=== PATIENT | male | born 1950 | race Caucasian/White ===

== ENCOUNTER 2016-11-16 09:28 | Inpatient (IN) | payer BC ==
[2016-11-16] VITALS (11 sets, daily range): BP systolic 123–155; BP diastolic 75–93; PULSE 71–88; RESP 16–20; TEMP 97.7–97.9; O2SAT 95–98
[~2016-11-16] VITALS: Ht 167.6 cm; Wt 85.0 kg
[~2016-11-16 09:28] MED LIST: BUPR100CR PO; LORA1TAB12 PO; TRAM50TA PO
[2016-11-16 09:58] LABS: AUTOMATED NEUTROPHIL # 5.2 TH/MM3 (1.8-7.7); BASOPHIL # 0.2 TH/MM3 (0-0.2); BASOPHIL % 2.1 % (0.0-2.0); EOSINOPHIL # 0.2 TH/MM3 (0-0.4); EOSINOPHIL % 2.5 % (0.0-4.0); HEMATOCRIT 47.4 % (39.0-51.0); HEMO FLAGS DIFF FINAL; LYMPH % 17.3 % (9.0-44.0); LYMPHOCYTE # 1.3 TH/MM3 (1.0-4.8); MEAN CELL VOLUME 94.2 FL (80.0-100.0); MEAN CORPUSCULAR HEMOGLOBIN 31.6 PG (27.0-34.0); MEAN CORPUSCULAR HGB CONC 33.5 % (32.0-36.0); MONO % 6.5 % (0.0-8.0); NEUT % 71.6 % (16.0-70.0); PLATELET COUNT 215 TH/MM3 (150-450); RED BLOOD COUNT 5.03 MIL/MM3 (4.50-5.90); RED CELL DISTRIBUTION WIDTH 12.5 % (11.6-17.2); WHITE BLOOD COUNT 7.4 TH/MM3 (4.0-11.0)
[2016-11-16] MEDS ORDERED: ONDANSETRON HCL 4 MG/2 ML VIAL IV PUSH ONE (10:00)
[2016-11-16] MEDS ORDERED: ASPIRIN 81 MG CHEW TAB PO ONE (10:00)
[2016-11-16] MEDS ORDERED: SODIUM CHLOR 0.9% 1000 ML INJ 1,000 ML IV ONE (10:00)
[2016-11-16] MEDS ORDERED: VANCOMYCIN INJ 1,250 MG in SODIUM CHLOR 0.9% 250 ML INJ 250 ML IV ONE (10:00)
[2016-11-16] MEDS: NITROGLYCERIN 0.4 MG SL 25 TABS/BTL SL SCH ×3 (10:03→10:18)
--- NOTE | 2016-11-16 10:03 | PD ---
HPI Chief Complaint: Chest Pain Time Seen by Provider: 09:48 Travel History International Travel<30 days: No Contact w/Intl Traveler<30days: No Traveled to known affect area: No History of Present Illness HPI Patient is a 66-year-old male who presents to emergency room with multiple complaints. 1) patient reports that he woke up at 6 AM this morning with complaints of chest pain. Patient reports that chest pain is substernal and felt a pressure to his chest. Patient reports that he feels short of breath, diaphoretic and anxious with this chest pain. Patient reports that his chest pain is nonradiating in nature. Reports that he has similar chest pain in the past and had a cardiac workup 2 months ago at an outside hospital, reports that they performed a stress test was negative, reports that they recommended possible cardiac catheter but wanted to see if medication help the symptoms prior to performing cardiac cath. Reports that chest pain feels similar to his previous symptoms. 2) patient reports that on Thursday (6 days ago), he was fixing his deck and reports that his right leg fell through an open part of the deck. Reports that it looked like a skin abrasion/avulsion initially, reports that today he has increased swelling and pain to his right lower extremity with increased redness surrounding the area of abrasion. Patient denies fevers or chills. Patient reports a tetanus is up-to-date. 3) patient reports that he is very anxious, reports history of anxiety as well. PFSH Past Medical History Anxiety: Yes Depression: Yes Diminished Hearing: No Immunizations Current: Yes Influenza Vaccination: Yes ?: Not Past Surgical History Surgical History: No Previous Surgery Family History Family History: Negative Social History Alcohol Use: No Tobacco Use: No Substance Use: No Allergies-Medications (Allergen,Severity, Reaction): Coded Allergies: No Known Allergies (Unverified , 11/16/16) Reported Meds & Prescriptions Reported Meds & Active Scripts Active Reported Lorazepam 1 Mg Tab 1 Mg PO DIRECTED PRN Wellbutrin SR 12 HR (Bupropion HCl) 100 Mg Tab 100 Mg PO Q12HR Review of Systems General / Constitutional: No: Fever Eyes: No: Visual changes HENT: No: Headaches Cardiovascular: Positive: Chest Pain or Discomfort, Diaphoresis Respiratory: Positive: Shortness of Breath Gastrointestinal: Positive: Nausea, No: Vomiting, Diarrhea, Abdominal Pain Genitourinary: No: Urgency, Frequency, Dysuria Musculoskeletal: No: Pain Skin: Positive Other (cellulitis/abscess infection to right lower leg), No Rash Neurologic: No: Weakness Psychiatric: No: Depression Endocrine: No: Polydipsia Hematologic/Lymphatic: No: Easy Bruising Physical Exam Narrative GENERAL: Patient moderate distress SKIN: Warm and dry. HEAD: Atraumatic. Normocephalic. EYES: Pupils equal and round. No scleral icterus. No injection or drainage. ENT: No nasal bleeding or discharge. Mucous membranes pink and moist. NECK: Trachea midline. No JVD. CARDIOVASCULAR: Patient tachycardic. No murmur appreciated. RESPIRATORY: No accessory muscle use. Clear to auscultation. Breath sounds equal bilaterally. GASTROINTESTINAL: Abdomen soft, non-tender, nondistended. Hepatic and splenic margins not palpable. MUSCULOSKELETAL: No obvious deformities. Right lower extremity: Patient with bruise with appearance of abscess with surrounding cellulitis to the right anterior herndon, there is no drainage to area , no signs of open fracture. Patient with positive Homans sign, pulses intact, neurovascularly intact Left lower extremity: Normal evaluation NEUROLOGICAL: Awake and alert. No obvious cranial nerve deficits. Motor grossly within normal limits. Normal speech. PSYCHIATRIC: Appropriate mood and affect; insight and judgment normal. Data Data Last Documented VS Vital Signs Date Time Temp Pulse Resp B/P Pulse Ox O2 Delivery O2 Flow Rate FiO2 11/16/16 12:21 70 18 11/16/16 12:21 132/87 98 Room Air 11/16/16 11:02 2 11/16/16 09:35 97.7 Orders Ckmb (Isoenzyme) Profile (11/16/16 09:48) Complete Blood Count With Diff (11/16/16 09:48) Comprehensive Metabolic Panel (11/16/16 09:48) Prothrombin Time / Inr (Pt) (11/16/16 09:48) Act Partial Throm Time (Ptt) (11/16/16 09:48) Troponin I (11/16/16 09:48) Chest, Single Ap (11/16/16 09:48) Ecg Monitoring (11/16/16 09:48) Iv Access Insert/Monitor (11/16/16 09:48) Oximetry (11/16/16 09:48) Aspirin Chew (Aspirin Chew) (11/16/16 10:00) Sodium Chloride 0.9% Flush (Ns Flush) (11/16/16 10:00) Nitroglycerin Sl (Nitrostat Sl) (11/16/16 10:00) Tibia/Fibula (Ap/Lat) (11/16/16 ) Vancomycin Inj (Vancomycin Inj) (11/16/16 10:00) Us Leg Venous Doppler (11/16/16 ) Ondansetron Inj (Zofran Inj) (11/16/16 10:00) Sodium Chlor 0.9% 1000 Ml Inj (Ns 1000 M (11/16/16 10:00) CKMB (11/16/16 09:30) CKMB% (11/16/16 09:30) Morphine Inj (Morphine Inj) (11/16/16 10:45) Lidocaine 1% Inj (Xylocaine 1% Inj) (11/16/16 13:15) Lidocaine 1% Inj (Xylocaine 1% Inj) (11/16/16 13:15) Wound Culture And Gram Stain (11/16/16 13:11) Admit Order (Ed Use Only) (11/16/16 13:12) Lidocaine 1% Inj (50 Ml) (Xylocaine 1% I (11/16/16 13:15) Labs Laboratory Tests Test 11/16/16 09:30 White Blood Count 7.4 TH/MM3 Red Blood Count 5.03 MIL/MM3 Hemoglobin 15.9 GM/DL Hematocrit 47.4 % Mean Corpuscular Volume 94.2 FL Mean Corpuscular Hemoglobin 31.6 PG Mean Corpuscular Hemoglobin 33.5 % Concent Red Cell Distribution Width 12.5 % Platelet Count 215 TH/MM3 Mean Platelet Volume 8.5 FL Neutrophils (%) (Auto) 71.6 % Lymphocytes (%) (Auto) 17.3 % Monocytes (%) (Auto) 6.5 % Eosinophils (%) (Auto) 2.5 % Basophils (%) (Auto) 2.1 % Neutrophils # (Auto) 5.2 TH/MM3 Lymphocytes # (Auto) 1.3 TH/MM3 Monocytes # (Auto) 0.5 TH/MM3 Eosinophils # (Auto) 0.2 TH/MM3 Basophils # (Auto) 0.2 TH/MM3 CBC Comment DIFF FINAL Differential Comment Prothrombin Time 10.8 SEC Prothromb Time International 1.0 RATIO Ratio Activated Partial 24.3 SEC Thromboplast Time Sodium Level 142 MEQ/L Potassium Level 3.9 MEQ/L Chloride Level 108 MEQ/L Carbon Dioxide Level 24.1 MEQ/L Anion Gap 10 MEQ/L Blood Urea Nitrogen 13 MG/DL Creatinine 1.20 MG/DL Estimat Glomerular Filtration 61 ML/MIN Rate Random Glucose 103 MG/DL Calcium Level 8.5 MG/DL Total Bilirubin 0.6 MG/DL Aspartate Amino Transf 14 U/L (AST/SGOT) Alanine Aminotransferase 26 U/L (ALT/SGPT) Alkaline Phosphatase 78 U/L Total Creatine Kinase 105 U/L Creatine Kinase MB 1.0 NG/ML Troponin I LESS THAN 0.02 NG/ML Total Protein 7.2 GM/DL Albumin 3.4 GM/DL MDM Medical Decision Making Medical Screen Exam Complete: Yes Emergency Medical Condition: Yes Interpretation(s) Vital Signs Date Time Temp Pulse Resp B/P Pulse Ox O2 Delivery O2 Flow Rate FiO2 11/16/16 09:37 88 97 Room Air 11/16/16 09:35 97.7 88 18 146/90 98 EKG at 0929: Normal sinus rhythm at 85 beats a minute, QT/QTc 332/375, nonspecific t wave changes, no acute changes Differential Diagnosis ACS, unstable angina, arrhythmia, electrolyte abnormality, pneumothorax, anxiety reaction, right lower extremity cellulitis with abscess, DVT Narrative Course Patient is a 66-year-old male with multiple complaints 1: Chest pain: Patient currently chest pain, chest pain is substernal and nonradiating, reports that pt feels like a "pressure to my chest." Patient was placed on a pelletizer tender. EKG obtained which showed no acute ST-T wave changes, patient with nonspecific T-wave changes on EKG. Discussed with patient need for x-ray chest, CBC, BMP, cardiac enzymes for further evaluation of symptoms. Patient did have a cardiac workup 2 months ago which patient reports "they did not find anything on with me." Reports that they considered cardiac cath but wanted to wait to see if his medications helped with his symptoms as he has hx of anxiety 2: Right extremity pain: Patient injured his right anterior herndon 6 days ago and reports that initially had a contusion of his right tibia, reports increased swelling and redness and pain to his calf over the past few days. Patient with abscess with cellulitis to his right anterior herndon, will x-ray right tib-fib to look for osteomyelitis. Will start patient on antibiotics. US ordered to evaluate for DVT. Patient's tetanus is up-to-date Patient relief of chest pain with 2SL nitroglycerin, patient with pain to right lower extremity, will provide pain medication for leg pain All labs and all studies reviewed patient in detail. Ultrasound with abscess to right lower extremity. Plan to I&D this abscess, patient does have surrounding cellulitis, patient given dose of IV vancomycin. Patient currently chest pain-free, well obs for chest pain as well as cellulitis of left lower extremity Procedures Procedure Narrative INCISION AND DRAINAGE OF ABSCESS: The area was prepped and was sterilely draped. A subcutaneous wheal of 1% lidocaine with a total number 2 mL was used to anesthetize the area properly. A number 11 scalpel was used to make a 1 -cm incision across the area of the abscess. The abscess was drained, complex loculations were broken down, and irrigated with normal saline. There was no area of pus drainage, pt with hematoma to area of abscess Cultures were obtained. Sterile dressing applied. Physician Communication Physician Communication case reviewed with Dr Be who accepts pt to service Diagnosis Primary Impression: Abscess or cellulitis of leg Additional Impression: Chest pain Qualified Code: R07.9 - Chest pain, unspecified type Admitting Information Admitting Physician Requests: Rosie Ortiz DO Nov 16, 2016 10:03
[2016-11-16] MEDS: SODIUM CHLORIDE 0.9% FLUSH 5 ML FLUSH IVF PRN (10:04)
[2016-11-16 10:07] LABS: CHLORIDE 108 MEQ/L (98-107); POTASSIUM 3.9 MEQ/L (3.5-5.1); SODIUM (NA) 142 MEQ/L (136-145)
[2016-11-16 10:10] LABS: ANION GAP 10 MEQ/L (5-15); BICARBONATE 24.1 MEQ/L (21.0-32.0); BLOOD UREA NITROGEN 13 MG/DL (7-18)
--- NOTE | 2016-11-16 10:10 | RADHPO ---
EXAM DATE/TIME: 11/16/2016 10:01 [facility] COMPARISON: TIBIA/FIBULA RIGHT (AP/LAT), November 11, 2016, 15:56. INDICATIONS : Previous fall/step through wooden deck. Wound to right anterior distal tib/fib. MEDICAL HISTORY : None. SURGICAL HISTORY : None. ENCOUNTER: Subsequent ACUITY: 4 - 6 days PAIN SCORE: 7/10 LOCATION: Right distal tib/fib FINDINGS: Two view examination of the right tibia demonstrates no evidence of fracture or dislocation. Bony mi neralization is normal. The soft tissue structures are intact. CONCLUSION: No acute disease. Stanislaw Rodriges MD on November 16, 2016 at 10:08 Board Certified Radiologist. This report was verified electronically.
[2016-11-16 10:11] LABS: APTT (PATIENT) 24.3 SEC (24.3-30.1); PROTHROMBIN TIME - PATIENT 10.8 SEC (9.8-11.6)
[2016-11-16 10:13] LABS: ALT (GPT) 26 U/L (12-78)
[2016-11-16 10:14] LABS: AST (GOT) 14 U/L (15-37); GLOMERULAR FILTRATION RATE 61 ML/MIN (>89)
[2016-11-16 10:15] LABS: TOTAL BILIRUBIN ADULT 0.6 MG/DL (0.2-1.0)
[2016-11-16 10:16] LABS: ALKALINE PHOSPHATASE 78 U/L (45-117); CREATINE KINASE 105 U/L (39-308)
--- NOTE | 2016-11-16 10:30 | RADHPO ---
EXAM DATE/TIME: 11/16/2016 10:00 [facility] COMPARISON: No previous studies available for comparison. INDICATIONS : Chest pain and tightness. MEDICAL HISTORY : None. SURGICAL HISTORY : None. ENCOUNTER: Initial ACUITY: 2 days PAIN SCORE: 4/10 LOCATION: Bilateral chest FINDINGS: A single view of the chest demonstrates the lungs to be symmetrically aerated without evidence of mas s, infiltrate or effusion. The cardiomediastinal contours are unremarkable. Osseous structures are intact. CONCLUSION: Normal examination. Stanislaw Rodriges MD on November 16, 2016 at 10:29 Board Certified Radiologist. This report was verified electronically.
[2016-11-16] MEDS ORDERED: MORPHINE SULFATE 4 MG/ML INJ IV PUSH ONE (10:45)
--- NOTE | 2016-11-16 12:29 | RADHPO ---
EXAM DATE/TIME: 11/16/2016 11:53 [facility] COMPARISON: No previous studies available for comparison. INDICATIONS : Right leg pain, swelling, and open wound lateral lower leg after falling through decking. MEDICAL HISTORY : Right leg pain and swelling. SURGICAL HISTORY : None. ENCOUNTER: Initial ACUITY: 4 - 6 days PAIN SCORE: 10/10 LOCATION: Right leg. TECHNIQUE: Venous ultrasound of the leg was performed from the inguinal ligament to the proximal calf. Real-nannette e, color Doppler and spectral tracing, compression and augmentation techniques were used. FINDINGS: There is normal compressibility of the deep venous system from the inguinal region to the proximal ca lf. No echogenic clot is seen in the lumen of the common femoral, femoral, popliteal, and posterior tibial veins. There is a normal response of the venous system to proximal and distal augmentation an d respiration. CONCLUSION: No evidence for DVT. At the level of the patient's wound a 5 x 5.7 x 0.9 cm subcutaneous fluid collec tion is noted. Stanislaw Rodriges MD on November 16, 2016 at 12:27 Board Certified Radiologist. This report was verified electronically.
[2016-11-16] MEDS ORDERED: LIDOCAINE HCL 1% 20 ML VIAL INFIL ONE (13:15)
[2016-11-16] MEDS ORDERED: LIDOCAINE HCL 1% 30 ML VIAL INFIL ONE (13:15)
[2016-11-16] MEDS ORDERED: LIDOCAINE HCL 1% 50 ML VIAL INFIL ONE (13:15)
[2016-11-16] MEDS: MUPIROCIN 2% CREAM 15 GM TOPICAL SCH ×2 (15:30→21:41)
[2016-11-16] MEDS: LORazepam 1 MG TAB PO PRN (15:57)
[2016-11-16] MEDS: ENOXAPARIN SODIUM 40 MG/0.4 ML SYRINGE SQ SCH (15:57)
[2016-11-16] MEDS: PANTOPRAZOLE SOD 40 MG DELAYED RELEASE TAB PO SCH (15:59)
--- NOTE | 2016-11-16 16:00 | MH ---
cc: CAMDEN VARGAS MD DATE OF ADMISSION: 11/16/2016 CHIEF COMPLAINT: Chest pain. HISTORY OF PRESENT ILLNESS: This is a 66-year-old male with past medical-surgical history significant for anxiety and depression who came to the emergency room at [facility] complaining of chest pain. He woke up this morning complaining of chest pain. The patient reported the chest pain was substernal and felt like a tightness in the chest and now he feels some shortness of breath and diaphoretic and anxious with this chest pain. The pain is non-radiating. No aggravating or relieving factors. He had a stress test done six months ago with Dr. Green and he said that the stress test was negative. They recommended a cardiac catheterization but he wanted to see if medication helped those symptoms prior to performing cardiac catheterization. He said that he felt last Thursday, six days ago, and reported right leg abrasion on the herndon area. He came to the emergency room and his redness got worsened and he got a tetanus shot. He had some calf pain and a venous Doppler was done, which shows negative for DVT. He was started on empiric antibiotics. Other than that, nothing significant. His chest pain totally resolved at the time of examination. PAST MEDICAL AND SURGICAL HISTORY: As dictated above. SOCIAL HISTORY: Denies smoking, drinking or taking any drugs. Lives at home. He is and is self-employed. ALLERGIES: NO KNOWN DRUG ALLERGIES. MEDICATIONS 1. Lorazepam 1 milligram p.o. p.r.n. as directed for anxiety. 2. Wellbutrin SR 100 milligrams p.o. q.12 h. REVIEW OF SYSTEMS: Positive for right leg wound and pain in the right leg. All other review of systems are negative. PHYSICAL EXAMINATION: GENERAL: On physical exam, this is a 66-year-old male lying on the bed not in acute distress. VITAL SIGNS: Temperature is 97.7, heart rate 76, respirations 18, blood pressure 155/92, 02 saturation 97% on oxygen nasal cannula. HEAD, EYES, EARS, NOSE, THROAT: Normocephalic and atraumatic. Extraocular muscles intact. Pupils equal, round and reactive to light and accommodation. Oral mucosa moist. NECK: The neck is supple. No visible thyromegaly or neck mass. Trachea is central. CARDIOVASCULAR: Regular rate and rhythm. RESPIRATORY: Clear to auscultation bilaterally. ABDOMEN: Abdomen soft and nontender. Bowel sounds audible. EXTREMITIES: No cyanosis or clubbing. Full range of motion of all extremities. He has calf tenderness on the right lower extremity and a wound on the right lower extremity skin shows a wound on the right lower extremity with erythema surrounding about 4 to 5 cm irregular wound with surrounding erythema and calf tenderness on the right side. NEUROLOGIC: Awake, alert and oriented times four. No focal deficits. PSYCHIATRIC: The patient is cooperative. LABORATORY DATA: CBC is totally unremarkable except for neutrophils 71.6 high. The basic metabolic profile is totally unremarkable except for chloride 108 high, GFR 61 low, AST 14 low. Troponin I is less than 0.02. Total protein 7.2, albumin 3.4. PT 10.8, INR 0.0, APTT 24.3. The wound culture done is negative so far. IMAGING STUDIES: X-ray tibia-fibula was done and shows nothing acute. Venous Doppler lower extremity was done and shows no evidence of DVT at the level of the patient's wound. Chest x-ray was done and shows normal chest x-ray. ASSESSMENT AND PLAN: 1. This is a 66-year male who came to the emergency room diagnosed with chest pain rule acute coronary syndrome, most likely atypical chest pain. The patient had a stress test done six months ago. The patient was given the option to do a cardiac catheterization, which he refused at that time. Cardiology consulted. Further recommendation per cardiology. The patient is chest pain-free currently. The patient on aspirin 325 milligrams p.o. daily, nitroglycerin and Lopressor 25 milligrams q. 12-hour and morphine for pain. 2. History of anxiety. Continue home medications. 3. History of depression. Continue home medications. 4. Right leg wound with calf tenderness. Venous Doppler negative for DVT. The patient is on cephazolin 1 gram IV q. 8 hours. Will continue. I will start Bactroban locally on the wound area. 5. DVT prophylaxis. Lovenox 40 milligrams subcutaneous daily. 6. GI prophylaxis. Protonix 40 milligrams p.o. daily. 7. Cellulitis of the right lower extremity. The patient is on antibiotics. Camden Vargas MD EA/ORLY /3:23 PM /3:49 PM
[2016-11-16] MEDS: NITROGLYCERIN 2% OINT 1 GM PACKET TOPICAL SCH ×2 (18:00→22:08)
--- NOTE | 2016-11-16 20:38 | MB ---
cc: LUH LOVELL MD DATE OF CONSULTATION: 11/16/2016. REASON FOR CONSULTATION: Chest pain. HISTORY OF PRESENT ILLNESS: Mr. Giles is a 66-year-old man who has a past medical history of GERD and anxiety. The patient reports he experienced some chest discomfort today and he was also having difficulties with his leg that was diagnosed with cellulitis recently. This precipitated his emergency room visit. The patient reports that he was worked up six months ago for chest pain. His stress test was normal. He subsequently was given lorazepam and underwent a sleep study which was positive for sleep apnea. He did get on the C-PAP and utilized the lorazepam and has not had any issues for the last six months until today. The patient reports that he had some discomfort that was not relieved with his lorazepam. He said it was substernal and radiated down. The patient is currently pain-free. He reports that he has had good relief with of the chest pain previously with the lorazepam but is has taken more and more medication to relieve his pain, thus he was concerned. ALLERGIES: NO KNOWN DRUG ALLERGIES. OUTPATIENT MEDICATIONS: Include: 1. Lorazepam. 2. Wellbutrin. FAMILY HISTORY: Negative for coronary artery disease. SOCIAL HISTORY: The patient is and has a very remote smoking history. REVIEW OF SYSTEMS: Except for what is mentioned in the history of present illness, all twelve systems are negative. PHYSICAL EXAMINATION: VITAL SIGNS: On physical examination, vital signs are 80, 18, 128/78. GENERAL: In general, he is an overweight man who is in no apparent distress. NECK: His neck is free from jugular venous distention. LUNGS: The lungs are bilaterally clear to auscultation. CARDIOVASCULAR: On cardiovascular examination, he has a normal S1 and S2. I do not appreciate any murmurs, rubs or gallops. ABDOMEN: The abdomen is soft. EXTREMITIES: Free from edema. The right lower extremity is wrapped. EKGS: EKG show normal sinus rhythm with nonspecific S-T-T wave changes. LABORATORY VALUES: Significant for an initial troponin which is negative. IMPRESSION: 1. Chest pain - the patient has had a stress test done six months ago that was negative per his report. He has only a remote history of smoking in terms of his cardiac risk factors. He has had good relief of his chest pain in the past with the lorazepam and sleep apnea treatment. We did discuss that the stress test is about 90% and that further evaluation would potentially include either cardiac catheterization or coronary CT. The patient is not really interested in either of these procedures as he does feel it is most likely related to stress. He has been fairly active at home rebuilding a deck including lifting lumbar and swinging a hammer without any problems. All his episodes recently have been at rest. Thus, he is declining any further evaluation. At this point, it does seem that his discomfort is most likely related to either his anxiety or his GERD. 2. Gastroesophageal reflux disease (GERD) - this will be managed by the primary team. 3. Anxiety - this will be managed by the primary team. 4. Cellulitis - This will be managed by the primary team. I will be available on a PRN basis. Luh Lovell M.D. RUBI/ORLY /4:33 PM /8:28 PM
[2016-11-16] MEDS: buPROPion HCL 100 MG SUSTAINED RELEASE TAB PO SCH (21:40)
[2016-11-16] MEDS: METOPROLOL TARTRATE 25 MG TAB PO SCH (21:40)
[2016-11-17] VITALS (8 sets, daily range): BP systolic 98–128; BP diastolic 64–86; PULSE 62–85; RESP 16–20; TEMP 96.8–98.2; O2SAT 94–98
[2016-11-17] MEDS: LORazepam 1 MG TAB PO PRN ×3 (00:31→20:51)
[2016-11-17] MEDS: NITROGLYCERIN 2% OINT 1 GM PACKET TOPICAL SCH ×4 (05:49→23:10)
[2016-11-17] MEDS: MUPIROCIN 2% CREAM 15 GM TOPICAL SCH ×3 (05:49→21:01)
[2016-11-17 06:15] LABS: AUTOMATED NEUTROPHIL # 4.8 TH/MM3 (1.8-7.7); BASOPHIL % 0.6 % (0.0-2.0); EOSINOPHIL # 0.3 TH/MM3 (0-0.4); EOSINOPHIL % 3.6 % (0.0-4.0); HEMATOCRIT 42.1 % (39.0-51.0); HEMO FLAGS DIFF FINAL; LYMPH % 18.3 % (9.0-44.0); LYMPHOCYTE # 1.3 TH/MM3 (1.0-4.8); MEAN CELL VOLUME 95.8 FL (80.0-100.0); MEAN CORPUSCULAR HEMOGLOBIN 32.4 PG (27.0-34.0); MEAN CORPUSCULAR HGB CONC 33.9 % (32.0-36.0); MONO % 11.7 % (0.0-8.0); NEUT % 65.8 % (16.0-70.0); PLATELET COUNT 185 TH/MM3 (150-450); RED CELL DISTRIBUTION WIDTH 13.1 % (11.6-17.2); WHITE BLOOD COUNT 7.3 TH/MM3 (4.0-11.0)
[2016-11-17 06:25] LABS: CHLORIDE 105 MEQ/L (98-107); SODIUM (NA) 141 MEQ/L (136-145)
[2016-11-17 06:33] LABS: ANION GAP 9 MEQ/L (5-15); BICARBONATE 27.2 MEQ/L (21.0-32.0); BLOOD UREA NITROGEN 12 MG/DL (7-18)
[2016-11-17 06:35] LABS: ALT (GPT) 19 U/L (12-78); AST (GOT) 10 U/L (15-37)
[2016-11-17 06:36] LABS: GLOMERULAR FILTRATION RATE 61 ML/MIN (>89)
[2016-11-17 06:37] LABS: TOTAL BILIRUBIN ADULT 0.6 MG/DL (0.2-1.0)
[2016-11-17 06:38] LABS: ALKALINE PHOSPHATASE 67 U/L (45-117)
[2016-11-17] MEDS: METOPROLOL TARTRATE 25 MG TAB PO SCH ×2 (08:38→20:50)
[2016-11-17] MEDS: PANTOPRAZOLE SOD 40 MG DELAYED RELEASE TAB PO SCH (08:38)
[2016-11-17] MEDS: ASPIRIN EC 325 MG TABEC PO SCH (08:38)
[2016-11-17] MEDS: buPROPion HCL 100 MG SUSTAINED RELEASE TAB PO SCH ×2 (08:38→20:51)
--- NOTE | 2016-11-17 08:46 | HHI.PR ---
Subjective History of Present Illness Patient feel better chest pain resolved cardiology input noted. right leg wound improving c/o pain right leg started on Lortab d/w SHIRLEY Key at bed side all question answered patient happy with care provided. Review of Systems Constitutional Constitutional: Fatigue Integumentary Skin Remarks right leg wound with redness. Vitals/Results Intake & Output 11/16/16 11/16/16 11/17/16 15:00 23:00 07:00 Intake Total 1240 ml 600 ml 620 ml Output Total 500 ml 775 ml Balance 740 ml 600 ml -155 ml Intake Oral 240 ml 600 ml 520 ml IV Total 1000 ml 100 ml Output Urine Total 500 ml 775 ml # Voids 1 1 # Bowel Movements 0 Vital Signs Vital Signs Date Time Temp Pulse Resp B/P Pulse Ox O2 Delivery O2 Flow Rate FiO2 11/17/16 04:00 98.2 71 16 114/86 98 11/17/16 00:00 98.1 74 18 128/81 95 11/16/16 21:00 77 11/16/16 20:00 97.9 77 16 132/93 98 11/16/16 18:07 97.8 74 20 131/88 98 11/16/16 17:52 80 11/16/16 16:00 80 11/16/16 16:00 75 18 128/78 98 Nasal Cannula 2 11/16/16 13:36 76 18 155/92 97 Nasal Cannula 2 11/16/16 12:21 70 18 11/16/16 12:21 71 18 132/87 98 Room Air 11/16/16 11:09 18 11/16/16 11:02 75 18 123/75 95 Nasal Cannula 2 11/16/16 10:26 18 11/16/16 10:20 78 18 125/81 97 Room Air 11/16/16 09:59 81 20 139/90 98 Room Air 11/16/16 09:37 88 97 Room Air 11/16/16 09:35 97.7 88 18 146/90 98 CBC/BMP: 11/17/16 0520 11/17/16 0520 Lab Results Laboratory Tests Test 11/16/16 11/16/16 11/17/16 09:30 20:55 05:20 White Blood Count 7.4 TH/MM3 7.3 TH/MM3 Red Blood Count 5.03 MIL/MM3 4.40 MIL/MM3 Hemoglobin 15.9 GM/DL 14.3 GM/DL Hematocrit 47.4 % 42.1 % Mean Corpuscular Volume 94.2 FL 95.8 FL Mean Corpuscular Hemoglobin 31.6 PG 32.4 PG Mean Corpuscular Hemoglobin 33.5 % 33.9 % Concent Red Cell Distribution Width 12.5 % 13.1 % Platelet Count 215 TH/MM3 185 TH/MM3 Mean Platelet Volume 8.5 FL 8.3 FL Neutrophils (%) (Auto) 71.6 % 65.8 % Lymphocytes (%) (Auto) 17.3 % 18.3 % Monocytes (%) (Auto) 6.5 % 11.7 % Eosinophils (%) (Auto) 2.5 % 3.6 % Basophils (%) (Auto) 2.1 % 0.6 % Neutrophils # (Auto) 5.2 TH/MM3 4.8 TH/MM3 Lymphocytes # (Auto) 1.3 TH/MM3 1.3 TH/MM3 Monocytes # (Auto) 0.5 TH/MM3 0.9 TH/MM3 Eosinophils # (Auto) 0.2 TH/MM3 0.3 TH/MM3 Basophils # (Auto) 0.2 TH/MM3 0.0 TH/MM3 CBC Comment DIFF FINAL DIFF FINAL Differential Comment Prothrombin Time 10.8 SEC Prothromb Time International 1.0 RATIO Ratio Activated Partial 24.3 SEC Thromboplast Time Sodium Level 142 MEQ/L 141 MEQ/L Potassium Level 3.9 MEQ/L 4.0 MEQ/L Chloride Level 108 MEQ/L 105 MEQ/L Carbon Dioxide Level 24.1 MEQ/L 27.2 MEQ/L Anion Gap 10 MEQ/L 9 MEQ/L Blood Urea Nitrogen 13 MG/DL 12 MG/DL Creatinine 1.20 MG/DL 1.20 MG/DL Estimat Glomerular Filtration 61 ML/MIN 61 ML/MIN Rate Random Glucose 103 MG/DL 91 MG/DL Calcium Level 8.5 MG/DL 8.0 MG/DL Total Bilirubin 0.6 MG/DL 0.6 MG/DL Aspartate Amino Transf 14 U/L 10 U/L (AST/SGOT) Alanine Aminotransferase 26 U/L 19 U/L (ALT/SGPT) Alkaline Phosphatase 78 U/L 67 U/L Total Creatine Kinase 105 U/L Creatine Kinase MB 1.0 NG/ML Troponin I LESS THAN 0.02 LESS THAN 0.02 LESS THAN 0.02 NG/ML NG/ML NG/ML Total Protein 7.2 GM/DL 6.3 GM/DL Albumin 3.4 GM/DL 2.9 GM/DL Microbiology Microbiology 11/16/16 Gram Stain, Received Pending 11/16/16 Wound Culture, Received Pending Physical Exam General General Appearance: No Acute Distress, Comfortable Eyes Eye Exam: Pupils Equal, Pupils Reactive, Sclera White, Extraocular Movement Intact Ears & Nose Ears & Nose Exam: Nasal Mucosa [place] Throat Throat Exam: Oral Mucosa [place] & Moist, Oral Pharynx Normal Neck Neck Exam: Neck Supple, Trachea Midline Pulmonary Resp Exam: Clear Bilaterally, Breath Sounds Equal Cardiology CV Exam: Regular, Normal Sinus Rhythm Gastrointestinal/Abdomen GI Exam: Soft, Non-Tender, Bowel Sounds Present Musculoskeletal MS Exam: Joints Intact, Normal Tone Integumentary Skin Remarks 5x7 cm irrigular wound with erythema. Extremeties Extremities Exam: No Edema Neurologic Neuro Exam: Alert, Awake, Oriented, Speech Clear, Moving All Extremities, No Focal Deficits VTE Prophylaxis VTE Prophylaxis Meds: Lovenox PUD Prophylasis PUD Prophylaxis: Protonix Assessment/Plan Assessment/Plan ASSESSMENT AND PLAN: 1. This is a 66-year male who came to the emergency room diagnosed with chest pain rule acute coronary syndrome, most likely atypical chest pain. The patient had a stress test done six months ago. The patient was given the option to do a cardiac catheterization, which he refused at that time. Cardiology input noted. no Further recommendation per cardiology. The patient is chest pain-free currently. The patient on aspirin 325 milligrams p.o. daily, nitroglycerin and Lopressor 25 milligrams q. 12-hour and morphine for pain. 2. History of anxiety. Continue home medications. 3. History of depression. Continue home medications. 4. Right leg wound with calf tenderness. Venous Doppler negative for DVT. The patient is on cephazolin 1 gram IV q. 8 hours. Will continue. on Bactroban locally on the wound area. 5. DVT prophylaxis. Lovenox 40 milligrams subcutaneous daily. 6. GI prophylaxis. Protonix 40 milligrams p.o. daily. 7. Cellulitis of the right lower extremity. The patient is on antibiotics. Discussed Condition with: Patient Camden Rizo MD Nov 17, 2016 08:46
[2016-11-17 09:01] LABS: HDL CHOLESTEROL 42.6 MG/DL (40.0-60.0); LDL CHOLESTEROL 109 MG/DL (0-99)
[2016-11-17] MEDS: ACETAMINOPHEN/HYDROcodone 325 MG/5 MG TAB PO PRN ×2 (12:43→19:09)
--- NOTE | 2016-11-17 15:11 | EC ---
Study Study Date:11/17/2016 STUDY CONCLUSIONS SUMMARY LEFT VENTRICLE: The cavity size was normal. Wall thickness was normal. Systolic function was normal. The estimated ejection fraction was in the range of 55% to 60%. Wall motion was normal; there were no regional wall motion abnormalities. If LV function is below 40, please consider prescribing an ACEI or ARB or document rationale for non-use. PROCEDURE DATA STUDY STATUS: Elective. Procedure: Transthoracic echocardiography. Image quality was good. Scanning was performed from the parasternal, apical, and subcostal acoustic windows. Study completion: The patient tolerated the procedure well. Transthoracic echocardiography. M-mode, complete 2D, complete spectral Doppler, and color Doppler. Patient status: Inpatient. CARDIAC ANATOMY LEFT VENTRICLE: The cavity size was normal. Wall thickness was normal. Systolic function was normal. The estimated ejection fraction was in the range of 55% to 60%. Wall motion was normal; there were no regional wall motion abnormalities. AORTIC VALVE: Trileaflet; normal thickness leaflets. Doppler: Transvalvular velocity was within the normal range. There was no stenosis. No regurgitation. AORTA: Aortic root: The aortic root was normal in size. MITRAL VALVE: Structurally normal valve. Doppler: Transvalvular velocity was within the normal range. There was no evidence for stenosis. Trace to mild regurgitation. LEFT ATRIUM: The atrium was normal in size. RIGHT VENTRICLE: The cavity size was normal. Wall thickness was normal. PULMONIC VALVE: Doppler: Transvalvular velocity was within the normal range. There was no evidence for stenosis. No regurgitation. TRICUSPID VALVE: Structurally normal valve. Doppler: Transvalvular velocity was within the normal range. Trace to mild regurgitation. PULMONARY ARTERY: The main pulmonary artery was normal-sized. Systolic pressure was within the normal range. RIGHT ATRIUM: The atrium was normal in size. PERICARDIUM: There was no pericardial effusion. SYSTEMIC VEINS: Inferior vena cava: The vessel was normal in size. BASIC MEASUREMENTS ADULT NORMAL Left ventricle LV internal dimension, ED, chordal level, 45.4 mm 43-52 PLAX LV internal dimension, ES, chordal level, 37 mm 23-38 PLAX Fractional shortening, chordal level, PLAX *19 % >29 LV posterior wall thickness, ED 10.2 mm IVS/LVPW ratio, ED 0.91 <1.3 Ventricular septum Septal thickness, ED 9.32 mm Aortic valve Leaflet separation 20 mm 15-26 Right ventricle RV internal dimension, ED, PLAX 28 mm 19-38 BASIC MEASUREMENTS ADULT NORMAL Aortic valve Leaflet separation 20 mm 15-26 Aorta Root diameter, ED 35 mm 20-37 Left atrium Anterior-posterior dimension, ES 36 mm 19-40 LA/aortic root ratio 1.03 DOPPLER MEASUREMENTS ADULT NORMAL Main pulmonary artery Pressure, S 30 mm Hg =30 Mitral valve Peak E-wave velocity 61.2 cm/s Peak A-wave velocity 61.2 cm/s Peak E/A ratio 1 Tricuspid valve Regurgitant peak velocity 208 cm/s Peak RV-RA gradient, S 17 mm Hg Maximal regurgitant velocity 208 cm/s Systemic veins Estimated CVP 10 mm Hg Right ventricle RV pressure, S *30 mm Hg <30 LEGEND: Mean values are shown as u=mean value. Asterisk (*) gunn values outside specified normal range. Prepared and signed by Waldemar Lim [id number]
[2016-11-17] MEDS: ENOXAPARIN SODIUM 40 MG/0.4 ML SYRINGE SQ SCH (16:31)
--- NOTE | 2016-11-17 17:44 | EKG ---
Date Performed: 11/16/2016 Time Performed: 09:29:38 PTAGE: 66 years EKG: Sinus rhythm Inferior and anterior T wave changes are nonspecific Low QRS voltages in precordial leads Borderline ECG NO PREVIOUS TRACING DOCTOR: Mayelin Ratliff Interpretating Date/Time 11/17/2016 17:43:32
[2016-11-17] MEDS: SODIUM CHLORIDE 0.9% FLUSH 5 ML FLUSH IVF PRN (20:51)
[2016-11-18] VITALS (9 sets, daily range): BP systolic 118–138; BP diastolic 79–90; PULSE 54–71; RESP 18–20; TEMP 96.2–97; O2SAT 95–98
[2016-11-18] MEDS: SODIUM CHLORIDE 0.9% FLUSH 5 ML FLUSH IVF PRN (05:01)
[2016-11-18] MEDS: MUPIROCIN 2% CREAM 15 GM TOPICAL SCH ×3 (05:07→22:08)
[2016-11-18] MEDS: NITROGLYCERIN 2% OINT 1 GM PACKET TOPICAL SCH ×4 (05:07→22:07)
[2016-11-18] MEDS: ACETAMINOPHEN/HYDROcodone 325 MG/5 MG TAB PO PRN ×3 (05:21→22:18)
[2016-11-18 06:20] LABS: AUTOMATED NEUTROPHIL # 3.7 TH/MM3 (1.8-7.7); BASOPHIL % 0.7 % (0.0-2.0); EOSINOPHIL # 0.4 TH/MM3 (0-0.4); HEMATOCRIT 41.5 % (39.0-51.0); HEMO FLAGS DIFF FINAL; LYMPHOCYTE # 1.6 TH/MM3 (1.0-4.8); MEAN CELL VOLUME 95.2 FL (80.0-100.0); MEAN CORPUSCULAR HEMOGLOBIN 32.8 PG (27.0-34.0); MEAN CORPUSCULAR HGB CONC 34.4 % (32.0-36.0); MONO % 12.6 % (0.0-8.0); NEUT % 55.7 % (16.0-70.0); PLATELET COUNT 189 TH/MM3 (150-450); RED BLOOD COUNT 4.35 MIL/MM3 (4.50-5.90); RED CELL DISTRIBUTION WIDTH 13.2 % (11.6-17.2); WHITE BLOOD COUNT 6.5 TH/MM3 (4.0-11.0)
[2016-11-18 06:27] LABS: CHLORIDE 108 MEQ/L (98-107); POTASSIUM 3.9 MEQ/L (3.5-5.1); SODIUM (NA) 142 MEQ/L (136-145)
[2016-11-18 06:32] LABS: ANION GAP 8 MEQ/L (5-15); BICARBONATE 26.2 MEQ/L (21.0-32.0); BLOOD UREA NITROGEN 15 MG/DL (7-18)
[2016-11-18 06:35] LABS: ALT (GPT) 16 U/L (12-78); AST (GOT) 10 U/L (15-37); GLOMERULAR FILTRATION RATE 61 ML/MIN (>89)
[2016-11-18 06:37] LABS: TOTAL BILIRUBIN ADULT 0.4 MG/DL (0.2-1.0)
[2016-11-18 06:38] LABS: ALKALINE PHOSPHATASE 67 U/L (45-117)
--- NOTE | 2016-11-18 08:56 | HHI.PR ---
Subjective History of Present Illness Patient feel better chest pain resolved cardiology input noted. right leg wound still same check MRI right leg and consulted ID. c/o pain right leg started Morphine IV and also on Lortab d/w SHIRLEY Cruz at bed side all question answered patient happy with care provided. Review of Systems Constitutional Constitutional: Fatigue Integumentary Skin Remarks right leg wound with redness. Vitals/Results Intake & Output 11/17/16 11/17/16 11/18/16 15:00 23:00 07:00 Intake Total 750 ml 120 ml 118 ml Balance 750 ml 120 ml 118 ml Intake Oral 750 ml IV Total 120 ml 118 ml # Voids 5 3 3 # Bowel Movements 0 1 Vital Signs Vital Signs Date Time Temp Pulse Resp B/P Pulse Ox O2 Delivery O2 Flow Rate FiO2 11/18/16 08:14 98 21 11/18/16 04:00 96.8 54 20 121/82 98 11/18/16 00:00 96.5 54 18 119/79 97 11/17/16 20:00 96.8 65 20 98/67 96 11/17/16 20:00 65 11/17/16 19:32 95 21 11/17/16 16:00 97.2 62 18 117/64 95 11/17/16 12:00 97.8 67 18 122/82 94 CBC/BMP: 11/18/16 0537 11/18/16 0537 Lab Results Laboratory Tests Test 11/18/16 05:37 White Blood Count 6.5 TH/MM3 Red Blood Count 4.35 MIL/MM3 Hemoglobin 14.3 GM/DL Hematocrit 41.5 % Mean Corpuscular Volume 95.2 FL Mean Corpuscular Hemoglobin 32.8 PG Mean Corpuscular Hemoglobin 34.4 % Concent Red Cell Distribution Width 13.2 % Platelet Count 189 TH/MM3 Mean Platelet Volume 8.3 FL Neutrophils (%) (Auto) 55.7 % Lymphocytes (%) (Auto) 25.0 % Monocytes (%) (Auto) 12.6 % Eosinophils (%) (Auto) 6.0 % Basophils (%) (Auto) 0.7 % Neutrophils # (Auto) 3.7 TH/MM3 Lymphocytes # (Auto) 1.6 TH/MM3 Monocytes # (Auto) 0.8 TH/MM3 Eosinophils # (Auto) 0.4 TH/MM3 Basophils # (Auto) 0.0 TH/MM3 CBC Comment DIFF FINAL Differential Comment Sodium Level 142 MEQ/L Potassium Level 3.9 MEQ/L Chloride Level 108 MEQ/L Carbon Dioxide Level 26.2 MEQ/L Anion Gap 8 MEQ/L Blood Urea Nitrogen 15 MG/DL Creatinine 1.20 MG/DL Estimat Glomerular Filtration 61 ML/MIN Rate Random Glucose 91 MG/DL Calcium Level 8.2 MG/DL Total Bilirubin 0.4 MG/DL Aspartate Amino Transf 10 U/L (AST/SGOT) Alanine Aminotransferase 16 U/L (ALT/SGPT) Alkaline Phosphatase 67 U/L Total Protein 6.2 GM/DL Albumin 2.9 GM/DL Physical Exam General General Appearance: No Acute Distress, Comfortable Eyes Eye Exam: Pupils Equal, Pupils Reactive, Sclera White, Extraocular Movement Intact Ears & Nose Ears & Nose Exam: Nasal Mucosa [place] Throat Throat Exam: Oral Mucosa [place] & Moist, Oral Pharynx Normal Neck Neck Exam: Neck Supple, Trachea Midline Pulmonary Resp Exam: Clear Bilaterally, Breath Sounds Equal Cardiology CV Exam: Regular, Normal Sinus Rhythm Gastrointestinal/Abdomen GI Exam: Soft, Non-Tender, Bowel Sounds Present Musculoskeletal MS Exam: Joints Intact, Normal Tone Integumentary Skin Remarks 5x7 cm irrigular wound with erythema. Extremeties Extremities Exam: No Edema Neurologic Neuro Exam: Alert, Awake, Oriented, Speech Clear, Moving All Extremities, No Focal Deficits VTE Prophylaxis VTE Prophylaxis Meds: Lovenox PUD Prophylasis PUD Prophylaxis: Protonix Assessment/Plan Assessment/Plan ASSESSMENT AND PLAN: 1. This is a 66-year male who came to the emergency room diagnosed with chest pain rule acute coronary syndrome, most likely atypical chest pain. The patient had a stress test done six months ago. The patient was given the option to do a cardiac catheterization, which he refused at that time. Cardiology input noted. no Further recommendation per cardiology. The patient is chest pain-free currently. The patient on aspirin 325 milligrams p.o. daily, nitroglycerin and Lopressor 25 milligrams q. 12-hour and morphine for pain. 2. History of anxiety. Continue home medications. 3. History of depression. Continue home medications. 4. Right leg wound with calf tenderness. Venous Doppler negative for DVT. The patient is on cephazolin 1 gram IV q. 8 hours. Will continue. on Bactroban locally on the wound area. check MRI right leg and consulted ID. 5. DVT prophylaxis. Lovenox 40 milligrams subcutaneous daily. 6. GI prophylaxis. Protonix 40 milligrams p.o. daily. 7. Cellulitis of the right lower extremity. The patient is on antibiotics. Discussed Condition with: Patient Camden Rizo MD Nov 18, 2016 08:56
[2016-11-18] MEDS: buPROPion HCL 100 MG SUSTAINED RELEASE TAB PO SCH ×2 (09:32→22:08)
[2016-11-18] MEDS: PANTOPRAZOLE SOD 40 MG DELAYED RELEASE TAB PO SCH (09:32)
[2016-11-18] MEDS: ASPIRIN EC 325 MG TABEC PO SCH (09:32)
[2016-11-18] MEDS: LORazepam 1 MG TAB PO PRN ×2 (09:32→22:18)
[2016-11-18] MEDS: METOPROLOL TARTRATE 25 MG TAB PO SCH ×2 (09:32→21:00)
[2016-11-18] MEDS ORDERED: ONDANSETRON HCL 4 MG/2 ML VIAL IV PUSH PRN (14:45)
[2016-11-18] MEDS: MORPHINE SULFATE 4 MG/ML INJ IV PUSH PRN ×2 (14:50→19:50)
[2016-11-18] MEDS: ENOXAPARIN SODIUM 40 MG/0.4 ML SYRINGE SQ SCH (14:50)
--- NOTE | 2016-11-18 16:38 | RADHPO ---
EXAM DATE/TIME: 11/18/2016 13:57 [facility] COMPARISON: No previous studies available for comparison. INDICATIONS : Abscess. Right anteriolateral wound. CONTRAST: 16 cc Omniscan (gadodiamide) IV MEDICAL HISTORY : SURGICAL HISTORY : Rotator cuff repair. ENCOUNTER: Subsequent ACUITY: 4-6 days PAIN SCORE: 8/10 LOCATION: Right lower leg. TECHNIQUE: Multiplanar multisequence MRI examination of the lower leg was performed with and without contrast. FINDINGS: Patient recently had trauma to the right lateral leg, falling to her back. On the MR images there is a subcutaneous rim-enhancing complex elliptical fluid collection containing some increased T1 signal. Overall the abnormality measures up to 14 cm in length and about 2.4 cm in thickness with the high T 1 signal area measuring about 3.1 cm in diameter, possibly representing blood products or encapsulate d fat. I suspect this is a subcutaneous hemorrhage and may be complicated by infection or inflammatio n. It is unclear if this would be drainable due to its complexity. There does not appear to be any si gnificant involvement of the musculature of the right leg. No acute bony abnormalities are identified . CONCLUSION: Rim-enhancing complex hematoma or phlegmonous mass in the subcutaneous right leg associated with infl ammatory changes and mild surrounding edema or cellulitis. Cannot exclude an infected hematoma. Uncle ar if this is drainable. No associated bony abnormalities or significant involvement of the musculatu re. Willie Reyes MD on November 18, 2016 at 16:29 Board Certified Radiologist. This report was verified electronically.
[2016-11-19] VITALS (7 sets, daily range): BP systolic 103–123; BP diastolic 69–87; PULSE 53–79; RESP 17–20; TEMP 96.1–97.7; O2SAT 95–97
[2016-11-19] MEDS: MORPHINE SULFATE 4 MG/ML INJ IV PUSH PRN ×2 (04:50→20:24)
[2016-11-19] MEDS: MUPIROCIN 2% CREAM 15 GM TOPICAL SCH ×3 (04:52→20:23)
[2016-11-19] MEDS: NITROGLYCERIN 2% OINT 1 GM PACKET TOPICAL SCH ×3 (04:53→17:01)
[2016-11-19 06:20] LABS: AUTOMATED NEUTROPHIL # 3.2 TH/MM3 (1.8-7.7); BASOPHIL % 0.6 % (0.0-2.0); EOSINOPHIL # 0.4 TH/MM3 (0-0.4); EOSINOPHIL % 6.5 % (0.0-4.0); HEMATOCRIT 42.9 % (39.0-51.0); HEMO FLAGS DIFF FINAL; LYMPH % 28.7 % (9.0-44.0); LYMPHOCYTE # 1.8 TH/MM3 (1.0-4.8); MEAN CELL VOLUME 94.9 FL (80.0-100.0); MEAN CORPUSCULAR HEMOGLOBIN 32.1 PG (27.0-34.0); MEAN CORPUSCULAR HGB CONC 33.8 % (32.0-36.0); MONO % 13.4 % (0.0-8.0); NEUT % 50.8 % (16.0-70.0); PLATELET COUNT 205 TH/MM3 (150-450); RED BLOOD COUNT 4.52 MIL/MM3 (4.50-5.90); RED CELL DISTRIBUTION WIDTH 12.9 % (11.6-17.2); WHITE BLOOD COUNT 6.2 TH/MM3 (4.0-11.0)
[2016-11-19 06:28] LABS: CHLORIDE 106 MEQ/L (98-107); POTASSIUM 3.8 MEQ/L (3.5-5.1); SODIUM (NA) 142 MEQ/L (136-145)
[2016-11-19 06:33] LABS: ANION GAP 8 MEQ/L (5-15); BICARBONATE 27.6 MEQ/L (21.0-32.0); BLOOD UREA NITROGEN 12 MG/DL (7-18)
[2016-11-19 06:36] LABS: ALT (GPT) 15 U/L (12-78); AST (GOT) 9 U/L (15-37); GLOMERULAR FILTRATION RATE 61 ML/MIN (>89)
[2016-11-19 06:37] LABS: TOTAL BILIRUBIN ADULT 0.4 MG/DL (0.2-1.0)
[2016-11-19 06:38] LABS: ALKALINE PHOSPHATASE 72 U/L (45-117)
--- NOTE | 2016-11-19 08:31 | HHI.PR ---
Subjective History of Present Illness Patient feel better chest pain resolved cardiology input noted. right leg wound still same checked MRI right leg report discussed with patient and ID. input noted c/o pain right leg on Morphine IV and also on Lortab d/w SHIRLEY Cruz at bed side all question answered patient happy with care provided. Review of Systems Constitutional Constitutional: Fatigue Integumentary Skin Remarks right leg wound with redness. Vitals/Results Intake & Output 11/18/16 11/18/16 11/19/16 15:00 23:00 07:00 Intake Total 240 ml Output Total 600 ml Balance 240 ml -600 ml Intake Oral 240 ml Output Urine Total 600 ml # Voids 1 2 # Bowel Movements 0 Vital Signs Vital Signs Date Time Temp Pulse Resp B/P Pulse Ox O2 Delivery O2 Flow Rate FiO2 11/19/16 08:00 97.7 77 18 116/75 96 11/19/16 04:00 96.9 58 18 104/69 97 11/19/16 00:00 96.1 53 18 120/78 96 11/18/16 20:15 56 11/18/16 20:00 97.0 58 18 118/81 95 11/18/16 19:38 95 21 11/18/16 16:00 96.2 66 18 138/85 98 11/18/16 15:04 18 11/18/16 14:48 18 11/18/16 11:57 97.0 71 18 130/87 96 CBC/BMP: 11/19/16 0540 11/19/16 0540 Lab Results Laboratory Tests Test 11/19/16 05:40 White Blood Count 6.2 TH/MM3 Red Blood Count 4.52 MIL/MM3 Hemoglobin 14.5 GM/DL Hematocrit 42.9 % Mean Corpuscular Volume 94.9 FL Mean Corpuscular Hemoglobin 32.1 PG Mean Corpuscular Hemoglobin 33.8 % Concent Red Cell Distribution Width 12.9 % Platelet Count 205 TH/MM3 Mean Platelet Volume 8.3 FL Neutrophils (%) (Auto) 50.8 % Lymphocytes (%) (Auto) 28.7 % Monocytes (%) (Auto) 13.4 % Eosinophils (%) (Auto) 6.5 % Basophils (%) (Auto) 0.6 % Neutrophils # (Auto) 3.2 TH/MM3 Lymphocytes # (Auto) 1.8 TH/MM3 Monocytes # (Auto) 0.8 TH/MM3 Eosinophils # (Auto) 0.4 TH/MM3 Basophils # (Auto) 0.0 TH/MM3 CBC Comment DIFF FINAL Differential Comment Sodium Level 142 MEQ/L Potassium Level 3.8 MEQ/L Chloride Level 106 MEQ/L Carbon Dioxide Level 27.6 MEQ/L Anion Gap 8 MEQ/L Blood Urea Nitrogen 12 MG/DL Creatinine 1.20 MG/DL Estimat Glomerular Filtration 61 ML/MIN Rate Random Glucose 88 MG/DL Calcium Level 8.2 MG/DL Total Bilirubin 0.4 MG/DL Aspartate Amino Transf 9 U/L (AST/SGOT) Alanine Aminotransferase 15 U/L (ALT/SGPT) Alkaline Phosphatase 72 U/L Total Protein 6.6 GM/DL Albumin 3.0 GM/DL Physical Exam General General Appearance: No Acute Distress, Comfortable Eyes Eye Exam: Pupils Equal, Pupils Reactive, Sclera White, Extraocular Movement Intact Ears & Nose Ears & Nose Exam: Nasal Mucosa [place] Throat Throat Exam: Oral Mucosa [place] & Moist, Oral Pharynx Normal Neck Neck Exam: Neck Supple, Trachea Midline Pulmonary Resp Exam: Clear Bilaterally, Breath Sounds Equal Cardiology CV Exam: Regular, Normal Sinus Rhythm Gastrointestinal/Abdomen GI Exam: Soft, Non-Tender, Bowel Sounds Present Musculoskeletal MS Exam: Joints Intact, Normal Tone Integumentary Skin Remarks 5x7 cm irrigular wound with erythema. Extremeties Extremities Exam: No Edema Neurologic Neuro Exam: Alert, Awake, Oriented, Speech Clear, Moving All Extremities, No Focal Deficits VTE Prophylaxis VTE Prophylaxis Meds: Lovenox PUD Prophylasis PUD Prophylaxis: Protonix Assessment/Plan Assessment/Plan ASSESSMENT AND PLAN: 1. This is a 66-year male who came to the emergency room diagnosed with chest pain rule acute coronary syndrome, most likely atypical chest pain. The patient had a stress test done six months ago. The patient was given the option to do a cardiac catheterization, which he refused at that time. Cardiology input noted. no Further recommendation per cardiology. The patient is chest pain-free currently. The patient on aspirin 325 milligrams p.o. daily, nitroglycerin and Lopressor 25 milligrams q. 12-hour and morphine for pain. 2. History of anxiety. Continue home medications. 3. History of depression. Continue home medications. 4. Right leg wound with calf tenderness. Venous Doppler negative for DVT. The patient is on Antibiotic per ID recomendation... wound care consulted. checked MRI right leg report discussed with patient no osteomylitis.. and ID. Input noted. 5. DVT prophylaxis. Lovenox 40 milligrams subcutaneous daily. 6. GI prophylaxis. Protonix 40 milligrams p.o. daily. 7. Cellulitis of the right lower extremity. The patient is on antibiotics. Discussed Condition with: Patient Camden Rizo MD Nov 19, 2016 08:31
[2016-11-19] MEDS: buPROPion HCL 100 MG SUSTAINED RELEASE TAB PO SCH ×2 (08:47→20:23)
[2016-11-19] MEDS: METOPROLOL TARTRATE 25 MG TAB PO SCH ×2 (08:47→20:23)
[2016-11-19] MEDS: PANTOPRAZOLE SOD 40 MG DELAYED RELEASE TAB PO SCH (08:47)
[2016-11-19] MEDS: ASPIRIN EC 325 MG TABEC PO SCH (08:48)
[2016-11-19] MEDS: LORazepam 1 MG TAB PO PRN (08:51)
[2016-11-19] MEDS: ACETAMINOPHEN/HYDROcodone 325 MG/5 MG TAB PO PRN ×2 (08:51→15:08)
[2016-11-19] MEDS: ENOXAPARIN SODIUM 40 MG/0.4 ML SYRINGE SQ SCH (15:43)
--- NOTE | 2016-11-19 17:15 | PD.CONS ---
History of Present Illness Consult Requested By DR VARGAS Reason for Consult RLE CELLULITIS Primary Care Physician Carlos Rowe M.D. Diagnoses: (1) Contusion of right tibia (2) Abscess or cellulitis of leg History of Present Illness 66 Y/O MALE ADM WITH RIGHT LEG LACERATION AND CONTUSION X 1 WEEK. HIS LEG SLIPPED THRU A DECK FLOOR LAST THURSDAY. HE STATES IT BRUISED WORSE AND LAST THURSDAY HE SAW DR SWANSON OFFICE AND WAS SUPPOSE TO HAVE AN ANTIBIOTIC CALLED IN HOWEVER HE DID NOT RECEIVE IT. HE WAS SEEN IN [facility] ER AND LEFT DUE TO PROLONGED WAIT TIME. HE FINALLY CAME TO [facility] ER AND WAS ADM AND STARTED ON ANCEF. THE WOUND HAS REGRESSED AND HE HAS INCREASED LOCALIZED PAIN. CULTURES + CITROBACTER AND ENTEROCOCCUS. ID CONSULTED. MRI RIGHT LEG + PHLEGMONOUS AREA OR HEMATOMA. ( Lelo Cui) History of Present Illness Pain about 6-7/10. Feel some chills. No outpatient antibiotic. (Audrey Duke MD) Review of Systems Constitutional: DENIES: Fever Respiratory: DENIES: Cough, Hemoptysis Cardiovascular: DENIES: Chest pain Hematologic/lymphatic: COMPLAINS OF: Bruising (eLlo Cui) Constitutional: COMPLAINS OF: Chills Gastrointestinal: DENIES: Abdominal pain, Diarrhea, Vomiting Neurologic: DENIES: Headache, Localized weakness Psychiatric: DENIES: Anxiety, Confusion (Audrey Duke MD) Past Family Social History Allergies: Coded Allergies: No Known Allergies (Unverified , 11/16/16) Past Medical History Past Medical History Anxiety: Yes Depression: Yes Diminished Hearing: No Immunizations Current: Yes Influenza Vaccination: Yes Past Surgical History Past Surgical History Surgical History: No Previous Surgery Reported Medications Reported Meds & Prescriptions Reported Meds & Active Scripts Active Reported Lorazepam 1 Mg Tab 1 Mg PO DIRECTED PRN Wellbutrin SR 12 HR (Bupropion HCl) 100 Mg Tab 100 Mg PO Q12HR Active Ordered Medications ANCEF Family History Family History Family History: Negative Social History Social History Alcohol Use: No Tobacco Use: No Substance Use: No (Lelo Cui) Physical Exam Vital Signs Vital Signs Date Time Temp Pulse Resp B/P Pulse Ox O2 Delivery O2 Flow Rate FiO2 11/19/16 16:00 97.5 61 17 123/87 97 11/19/16 12:00 97.6 79 18 110/76 97 11/19/16 08:00 97.7 77 18 116/75 96 11/19/16 04:00 96.9 58 18 104/69 97 11/19/16 00:00 96.1 53 18 120/78 96 11/18/16 20:15 56 11/18/16 20:00 97.0 58 18 118/81 95 11/18/16 19:38 95 21 Physical Exam GENERAL: This is a well-nourished, well-developed patient, in no apparent distress. SKIN: No rashes, Cool and dry. Right leg with necrotic hematoma at the outer edge. surrounding cellulitis. some purlent drainage noted. + edema HEAD: Atraumatic. Normocephalic. No temporal or scalp tenderness. EYES: Pupils equal round and reactive. Extraocular motions intact. No scleral icterus. No injection or drainage. ENT: Nose without bleeding, purulent drainage or septal hematoma. Throat without erythema, tonsillar hypertrophy or exudate. Uvula midline. Airway patent. NECK: Trachea midline. No JVD or lymphadenopathy. Supple, nontender, no meningeal signs. CARDIOVASCULAR: Regular rate and rhythm without murmurs, gallops, or rubs. RESPIRATORY: Clear to auscultation. Breath sounds equal bilaterally. No wheezes , rales, or rhonchi. GASTROINTESTINAL: Abdomen soft, non-tender, nondistended. No hepato-splenomegaly , or palpable masses. No guarding. MUSCULOSKELETAL: Extremities without clubbing, cyanosis, or edema. No joint tenderness, effusion, or edema noted. No calf tenderness. Negative Homans sign bilaterally. NEUROLOGICAL: Awake and alert. Cranial nerves II through XII intact. Motor and sensory grossly within normal limits. Five out of 5 muscle strength in all muscle groups. Normal speech. Laboratory Laboratory Tests Test 11/19/16 05:40 White Blood Count 6.2 Red Blood Count 4.52 Hemoglobin 14.5 Hematocrit 42.9 Mean Corpuscular Volume 94.9 Mean Corpuscular Hemoglobin 32.1 Mean Corpuscular Hemoglobin 33.8 Concent Red Cell Distribution Width 12.9 Platelet Count 205 Mean Platelet Volume 8.3 Neutrophils (%) (Auto) 50.8 Lymphocytes (%) (Auto) 28.7 Monocytes (%) (Auto) 13.4 Eosinophils (%) (Auto) 6.5 Basophils (%) (Auto) 0.6 Neutrophils # (Auto) 3.2 Lymphocytes # (Auto) 1.8 Monocytes # (Auto) 0.8 Eosinophils # (Auto) 0.4 Basophils # (Auto) 0.0 CBC Comment DIFF FINAL Differential Comment Sodium Level 142 Potassium Level 3.8 Chloride Level 106 Carbon Dioxide Level 27.6 Anion Gap 8 Blood Urea Nitrogen 12 Creatinine 1.20 Estimat Glomerular Filtration 61 Rate Random Glucose 88 Calcium Level 8.2 Total Bilirubin 0.4 Aspartate Amino Transf 9 (AST/SGOT) Alanine Aminotransferase 15 (ALT/SGPT) Alkaline Phosphatase 72 Total Protein 6.6 Albumin 3.0 Date/Time Procedure Status Source Growth 11/16/16 13:15 Gram Stain - Final Complete Wound Incision 11/16/16 13:15 Wound Culture - Final Complete Enterococcus Avium Citrobacter Freundii Complex (Lelo Cui) Physical Exam Alert , Oriented x 3 Right leg with infected hematoma/ eschar and surrounding cellulitis on lateral herndon (Audrey Duke MD) Result Diagram: 11/19/16 0540 11/19/16 0540 Assessment and Plan Problem List: (1) Abscess or cellulitis of leg Status: Acute Plan: Stop ancef and vancomycin and start unasyn 3g iv q6h agree with surgical consult add esr crp will need wound care likely on dc may need debridement further orders will follow seen exam with Dr. Duke (Lelo Cui) Problem List: (1) Abscess or cellulitis of leg Status: Acute Plan: Stop ancef and vancomycin and start Unasyn 3g iv q6h agree with surgical consult add esr crp will need wound care likely on dc may need debridement further orders will follow seen exam with Dr. Duke Patient seen and examined. Above note reviewed. Plan: IV Unasyn Surgical consult Monitor clinically (Audrey Duke MD) Lelo Cui Nov 19, 2016 17:15 Audrey Duke MD Nov 19, 2016 18:11
[2016-11-19] MEDS: AMPICILLIN/SULBAC 3 GM/NS 100 ML IV SCH ×2 (17:52)
[2016-11-19] MEDS ORDERED: VANCOMYCIN INJ 1,000 MG in SODIUM CHLOR 0.9% 250 ML INJ 250 ML IV SCH (18:00)
[2016-11-20] VITALS: BP 105/67; PULSE 67; RESP 20; TEMP 95.8; O2SAT 96
[2016-11-20] MEDS: AMPICILLIN/SULBAC 3 GM/NS 100 ML IV SCH ×12 (00:23→23:46)
[2016-11-20] MEDS: ACETAMINOPHEN/HYDROcodone 325 MG/5 MG TAB PO PRN ×4 (00:23→23:46)
[2016-11-20] MEDS: LORazepam 1 MG TAB PO PRN ×3 (00:24→20:43)
[2016-11-20 04:00] VITALS: BP 107/74; PULSE 57; RESP 20; TEMP 97.1; O2SAT 96
[2016-11-20] MEDS: NITROGLYCERIN 2% OINT 1 GM PACKET TOPICAL SCH ×6 (06:00→23:52)
[2016-11-20] MEDS: MUPIROCIN 2% CREAM 15 GM TOPICAL SCH ×2 (06:10→20:34)
[2016-11-20 06:12] LABS: AUTOMATED NEUTROPHIL # 3.1 TH/MM3 (1.8-7.7); BASOPHIL % 0.7 % (0.0-2.0); EOSINOPHIL # 0.4 TH/MM3 (0-0.4); EOSINOPHIL % 5.8 % (0.0-4.0); HEMATOCRIT 43.5 % (39.0-51.0); HEMO FLAGS DIFF FINAL; LYMPH % 30.3 % (9.0-44.0); LYMPHOCYTE # 1.9 TH/MM3 (1.0-4.8); MEAN CELL VOLUME 95.5 FL (80.0-100.0); MEAN CORPUSCULAR HEMOGLOBIN 32.8 PG (27.0-34.0); MEAN CORPUSCULAR HGB CONC 34.3 % (32.0-36.0); MONO % 13.8 % (0.0-8.0); NEUT % 49.4 % (16.0-70.0); PLATELET COUNT 199 TH/MM3 (150-450); RED BLOOD COUNT 4.55 MIL/MM3 (4.50-5.90); RED CELL DISTRIBUTION WIDTH 12.6 % (11.6-17.2); WHITE BLOOD COUNT 6.3 TH/MM3 (4.0-11.0)
[2016-11-20 06:18] LABS: CHLORIDE 105 MEQ/L (98-107); POTASSIUM 4.1 MEQ/L (3.5-5.1); SODIUM (NA) 143 MEQ/L (136-145)
[2016-11-20 06:24] LABS: ANION GAP 8 MEQ/L (5-15); BICARBONATE 30.2 MEQ/L (21.0-32.0); BLOOD UREA NITROGEN 12 MG/DL (7-18)
[2016-11-20 06:27] LABS: ALT (GPT) 17 U/L (12-78); AST (GOT) 12 U/L (15-37); GLOMERULAR FILTRATION RATE 56 ML/MIN (>89)
[2016-11-20 06:29] LABS: TOTAL BILIRUBIN ADULT 0.4 MG/DL (0.2-1.0)
[2016-11-20 06:30] LABS: ALKALINE PHOSPHATASE 70 U/L (45-117)
[2016-11-20 08:00] VITALS: BP 115/83; PULSE 60; RESP 20; TEMP 96.1; O2SAT 97
[2016-11-20] MEDS: buPROPion HCL 100 MG SUSTAINED RELEASE TAB PO SCH ×2 (08:49→20:43)
[2016-11-20] MEDS: METOPROLOL TARTRATE 25 MG TAB PO SCH ×2 (08:49→20:43)
[2016-11-20] MEDS: PANTOPRAZOLE SOD 40 MG DELAYED RELEASE TAB PO SCH (08:50)
[2016-11-20] MEDS: ASPIRIN EC 325 MG TABEC PO SCH (08:50)
--- NOTE | 2016-11-20 08:52 | HHI.PR ---
Subjective History of Present Illness Patient feel better chest pain resolved . right leg wound better checked MRI right leg report discussed with patient and ID. input noted c/o pain right leg on Morphine IV and also on Lortab d/w SHIRLEY Albarran at bed side all question answered patient happy with care provided. Review of Systems Constitutional Constitutional: Fatigue Integumentary Skin Remarks right leg wound with redness. Vitals/Results Intake & Output 11/19/16 11/19/16 11/20/16 14:59 22:59 06:59 Intake Total 560 ml 240 ml 230 ml Balance 560 ml 240 ml 230 ml Intake Oral 560 ml 240 ml IV Total 230 ml # Voids 1 1 # Bowel Movements 0 Vital Signs Vital Signs Date Time Temp Pulse Resp B/P Pulse Ox O2 Delivery O2 Flow Rate FiO2 11/20/16 04:00 97.1 57 20 107/74 96 11/20/16 00:00 95.8 67 20 105/67 96 11/19/16 20:15 59 11/19/16 20:00 96.4 59 20 103/75 95 11/19/16 16:00 97.5 61 17 123/87 97 11/19/16 12:00 97.6 79 18 110/76 97 CBC/BMP: 11/20/16 0520 11/20/16 0520 Lab Results Laboratory Tests Test 11/20/16 05:20 White Blood Count 6.3 TH/MM3 Red Blood Count 4.55 MIL/MM3 Hemoglobin 14.9 GM/DL Hematocrit 43.5 % Mean Corpuscular Volume 95.5 FL Mean Corpuscular Hemoglobin 32.8 PG Mean Corpuscular Hemoglobin 34.3 % Concent Red Cell Distribution Width 12.6 % Platelet Count 199 TH/MM3 Mean Platelet Volume 8.2 FL Neutrophils (%) (Auto) 49.4 % Lymphocytes (%) (Auto) 30.3 % Monocytes (%) (Auto) 13.8 % Eosinophils (%) (Auto) 5.8 % Basophils (%) (Auto) 0.7 % Neutrophils # (Auto) 3.1 TH/MM3 Lymphocytes # (Auto) 1.9 TH/MM3 Monocytes # (Auto) 0.9 TH/MM3 Eosinophils # (Auto) 0.4 TH/MM3 Basophils # (Auto) 0.0 TH/MM3 CBC Comment DIFF FINAL Differential Comment Sodium Level 143 MEQ/L Potassium Level 4.1 MEQ/L Chloride Level 105 MEQ/L Carbon Dioxide Level 30.2 MEQ/L Anion Gap 8 MEQ/L Blood Urea Nitrogen 12 MG/DL Creatinine 1.30 MG/DL Estimat Glomerular Filtration 56 ML/MIN Rate Random Glucose 78 MG/DL Calcium Level 8.2 MG/DL Total Bilirubin 0.4 MG/DL Aspartate Amino Transf 12 U/L (AST/SGOT) Alanine Aminotransferase 17 U/L (ALT/SGPT) Alkaline Phosphatase 70 U/L Total Protein 6.4 GM/DL Albumin 2.9 GM/DL Physical Exam General General Appearance: No Acute Distress, Comfortable Eyes Eye Exam: Pupils Equal, Pupils Reactive, Sclera White, Extraocular Movement Intact Ears & Nose Ears & Nose Exam: Nasal Mucosa Herbst Throat Throat Exam: Oral Mucosa Herbst & Moist, Oral Pharynx Normal Neck Neck Exam: Neck Supple, Trachea Midline Pulmonary Resp Exam: Clear Bilaterally, Breath Sounds Equal Cardiology CV Exam: Regular, Normal Sinus Rhythm Gastrointestinal/Abdomen GI Exam: Soft, Non-Tender, Bowel Sounds Present Musculoskeletal MS Exam: Joints Intact, Normal Tone Integumentary Skin Remarks 5x7 cm irrigular wound with erythema. Extremeties Extremities Exam: No Edema Neurologic Neuro Exam: Alert, Awake, Oriented, Speech Clear, Moving All Extremities, No Focal Deficits VTE Prophylaxis VTE Prophylaxis Meds: Lovenox PUD Prophylasis PUD Prophylaxis: Protonix Assessment/Plan Assessment/Plan ASSESSMENT AND PLAN: 1. This is a 66-year male who came to the emergency room diagnosed with chest pain rule acute coronary syndrome, most likely atypical chest pain. The patient had a stress test done six months ago. The patient was given the option to do a cardiac catheterization, which he refused at that time. Cardiology input noted. no Further recommendation per cardiology. The patient is chest pain-free currently. The patient on aspirin 325 milligrams p.o. daily, nitroglycerin and Lopressor 25 milligrams q. 12-hour and morphine for pain. 2. History of anxiety. Continue home medications. 3. History of depression. Continue home medications. 4. Right leg wound with calf tenderness. Venous Doppler negative for DVT. The patient is on Antibiotic Unysn per ID recomendation... wound care consulted. checked MRI right leg report discussed with patient no osteomylitis.. and ID. Input noted. 5. DVT prophylaxis. Lovenox 40 milligrams subcutaneous daily. 6. GI prophylaxis. Protonix 40 milligrams p.o. daily. 7. Cellulitis of the right lower extremity. The patient is on antibiotics. Discussed Condition with: Patient Camden Rizo MD Nov 20, 2016 08:51
[2016-11-20 12:00] VITALS: BP 127/76; PULSE 71; RESP 20; TEMP 96.5; O2SAT 95
[2016-11-20] MEDS ORDERED: ONDANSETRON HCL 4 MG/2 ML VIAL IV PUSH ONE (12:00)
[2016-11-20] MEDS ORDERED: PROPOFOL 200 MG/20 ML AMP IV ONE (12:00)
[2016-11-20] MEDS ORDERED: KETOROLAC TROMETHAMINE 60 MG/2 ML (IM) VIAL IM ONE (12:00)
[2016-11-20] MEDS ORDERED: INSULIN HUMAN REGULAR 1,000 UNITS/10 ML VIAL SQ PRN (14:15)
[2016-11-20] MEDS: SODIUM CHLORID 0.9% 500 ML IV SCH (14:15)
[2016-11-20] MEDS ORDERED: METOPROLOL TARTRATE 25 MG TAB PO PRN (14:15)
[2016-11-20] MEDS ORDERED: ZEGE20CA4 PO (14:31)
[2016-11-20] MEDS: LACTATED RINGER'S 1000 ML IV SCH (14:45)
[2016-11-20] MEDS: ENOXAPARIN SODIUM 40 MG/0.4 ML SYRINGE SQ SCH (16:00)
[2016-11-20] MEDS ORDERED: fentaNYL CITRATE 250 MCG/5 ML AMP ONE (17:36)
[2016-11-20] MEDS ORDERED: DEXAMETHASONE SOD PHOS 4 MG/ML VIAL ONE (17:36)
[2016-11-20] MEDS ORDERED: ONDANSETRON HCL 4 MG/2 ML VIAL ONE (17:37)
[2016-11-20] MEDS ORDERED: SODIUM CHLORIDE 0.9% 20 ML VIAL ONE (17:53)
[2016-11-20] MEDS ORDERED: ceFAZolin INJ 1,000 MG VIAL ONE (17:54)
[2016-11-20] MEDS ORDERED: LIDOCAINE 1%/EPINEPHrine 1:100,000 SOLN 20 ML VIAL ONE (17:54)
[2016-11-20] MEDS ORDERED: LIDOCAINE HCL 1% 50 ML VIAL ONE (18:04)
[2016-11-20] MEDS ORDERED: *morphine SULFATE 8 MG/ML PERIprocedure ONLY ONE (19:26)
[2016-11-20] MEDS ORDERED: DO NOT ADM ANY ANTICOAGULANT DRUGS XX PRN (19:45)
[2016-11-20 21:00] VITALS: BP 124/79; PULSE 66; RESP 20; TEMP 96.4; O2SAT 94
--- NOTE | 2016-11-20 22:28 | MP ---
cc: DAILY VIRGEN MD DATE OF SURGERY 11/20/2016 PROCEDURE Incision and drainage with irrigation and debridement right leg with VAC dressing placement. PREOPERATIVE DIAGNOSIS Infected hematoma. POSTOPERATIVE DIAGNOSIS Infected hematoma. ANESTHESIA LMA. SURGEON Evangelina Virgen MD ESTIMATED BLOOD LOSS 50 mL FLUIDS 300 mL crystalloid COMPLICATIONS None. DRAINS None SPECIMEN None. PROCEDURE IN DETAIL The patient was seen in the holding area and the correct site marked by the undersigned and confirmed by the patient. He was taken to the operating room and placed on the operating table in the supine position. After an adequate level of laryngeal mask anesthesia was achieved, the right leg was prepped and draped in the field. Time-out was taken confirming the correct patient, site and procedure to be performed. The right leg was then incised with the eschar removed. When this had been completed, hematoma was easily removed with suction. At this point, 3 liters of antibiotic irrigation was used to irrigate all of the remaining small bits of clot from the wound. Skin edges remaining were viable and the tissue underlying this including muscle and fascia were all viable as well. A small amount of subcutaneous tissue was debrided with less than 25 cm2 removed. When this had been accomplished, a small VAC sponge was cut to size and placed into the defect. This was secured and suction apparatus applied with the suction canister. The patient was extubated and taken back to the recovery room in stable condition. Sponge, needle and instrument counts were reported to be correct. MD HERNANDEZ Schaffer/ /7:42 PM /10:22 PM
[2016-11-21] VITALS (9 sets, daily range): BP systolic 98–138; BP diastolic 57–91; PULSE 57–97; RESP 18–20; TEMP 96–96.8; O2SAT 94–97
[2016-11-21] MEDS: NITROGLYCERIN 2% OINT 1 GM PACKET TOPICAL SCH ×4 (04:40→23:52)
[2016-11-21] MEDS: LORazepam 1 MG TAB PO PRN ×3 (04:47→21:00)
[2016-11-21] MEDS: MUPIROCIN 2% CREAM 15 GM TOPICAL SCH ×3 (04:48→20:57)
[2016-11-21 05:09] LABS: AUTOMATED NEUTROPHIL # 5.1 TH/MM3 (1.8-7.7); BASOPHIL % 0.2 % (0.0-2.0); HEMATOCRIT 42.3 % (39.0-51.0); HEMO FLAGS DIFF FINAL; LYMPH % 9.7 % (9.0-44.0); LYMPHOCYTE # 0.6 TH/MM3 (1.0-4.8); MEAN CELL VOLUME 95.3 FL (80.0-100.0); MEAN CORPUSCULAR HEMOGLOBIN 32.9 PG (27.0-34.0); MEAN CORPUSCULAR HGB CONC 34.6 % (32.0-36.0); MONO % 5.1 % (0.0-8.0); PLATELET COUNT 214 TH/MM3 (150-450); RED BLOOD COUNT 4.44 MIL/MM3 (4.50-5.90); RED CELL DISTRIBUTION WIDTH 13.2 % (11.6-17.2)
[2016-11-21 05:26] LABS: ANION GAP 8 MEQ/L (5-15); AST (GOT) 13 U/L (15-37); BICARBONATE 26.8 MEQ/L (21.0-32.0); BLOOD UREA NITROGEN 16 MG/DL (7-18); CHLORIDE 104 MEQ/L (98-107); GLOMERULAR FILTRATION RATE 53 ML/MIN (>89); POTASSIUM 4.2 MEQ/L (3.5-5.1); SODIUM (NA) 139 MEQ/L (136-145)
[2016-11-21 05:30] LABS: ALKALINE PHOSPHATASE 71 U/L (45-117); ALT (GPT) 18 U/L (12-78); TOTAL BILIRUBIN ADULT 0.5 MG/DL (0.2-1.0)
[2016-11-21] MEDS: ACETAMINOPHEN/HYDROcodone 325 MG/5 MG TAB PO PRN ×3 (05:41→17:33)
[2016-11-21] MEDS: AMPICILLIN/SULBAC 3 GM/NS 100 ML IV SCH ×8 (05:41→23:53)
[2016-11-21] MEDS: SODIUM CHLORID 0.9% 500 ML IV SCH (05:44)
--- NOTE | 2016-11-21 05:55 | HHI.PR ---
Subjective History of Present Illness Patient feel better chest pain resolved . right leg wound better checked MRI right leg report discussed with patient and ID. input noted all question answered patient happy with care provided. wound culture positive for citrobactor freundi complex and Enteroccous avium sensitive to unysn on unysn... s/p wound debridment and hematoma evacuation...wound vac in place.. d/ w Erika from general surgery and Dr Keys ID...c/o Sever pain started on dilaudid. Review of Systems Constitutional Constitutional: Fatigue Integumentary Skin Remarks right leg wound with redness. Vitals/Results Intake & Output 11/20/16 11/20/16 11/21/16 15:00 23:00 07:00 Intake Total 840 ml 100 ml Output Total 50 ml Balance 790 ml 100 ml Intake Oral 240 ml IV Total 300 ml 100 ml Other 300 ml Output Urine Total 0 ml Estimated Blood Loss 50 ml Other 0 ml # Voids 0 # Bowel Movements 0 Vital Signs Vital Signs Date Time Temp Pulse Resp B/P Pulse Ox O2 Delivery O2 Flow Rate FiO2 11/21/16 00:46 19 11/21/16 00:26 97 21 11/21/16 00:00 96.1 97 19 110/ 96 11/20/16 21:00 96.4 66 20 124/79 94 11/20/16 19:30 69 16 123/84 94 Room Air 11/20/16 19:15 70 16 125/77 95 Room Air 11/20/16 19:00 66 16 126/78 98 Nasal Cannula 2 11/20/16 18:47 98.4 77 16 140/83 98 Nasal Cannula 2 11/20/16 14:34 98.1 61 18 115/70 98 11/20/16 12:00 96.5 71 20 127/76 95 11/20/16 08:00 96.1 60 20 115/83 97 CBC/BMP: 11/21/16 0404 11/21/16 0404 Lab Results Laboratory Tests Test 11/21/16 04:04 White Blood Count 6.0 TH/MM3 Red Blood Count 4.44 MIL/MM3 Hemoglobin 14.6 GM/DL Hematocrit 42.3 % Mean Corpuscular Volume 95.3 FL Mean Corpuscular Hemoglobin 32.9 PG Mean Corpuscular Hemoglobin 34.6 % Concent Red Cell Distribution Width 13.2 % Platelet Count 214 TH/MM3 Mean Platelet Volume 8.5 FL Neutrophils (%) (Auto) 85.0 % Lymphocytes (%) (Auto) 9.7 % Monocytes (%) (Auto) 5.1 % Eosinophils (%) (Auto) 0.0 % Basophils (%) (Auto) 0.2 % Neutrophils # (Auto) 5.1 TH/MM3 Lymphocytes # (Auto) 0.6 TH/MM3 Monocytes # (Auto) 0.3 TH/MM3 Eosinophils # (Auto) 0.0 TH/MM3 Basophils # (Auto) 0.0 TH/MM3 CBC Comment DIFF FINAL Differential Comment Sodium Level 139 MEQ/L Potassium Level 4.2 MEQ/L Chloride Level 104 MEQ/L Carbon Dioxide Level 26.8 MEQ/L Anion Gap 8 MEQ/L Blood Urea Nitrogen 16 MG/DL Creatinine 1.35 MG/DL Estimat Glomerular Filtration 53 ML/MIN Rate Random Glucose 126 MG/DL Calcium Level 8.3 MG/DL Total Bilirubin 0.5 MG/DL Aspartate Amino Transf 13 U/L (AST/SGOT) Alanine Aminotransferase 18 U/L (ALT/SGPT) Alkaline Phosphatase 71 U/L Total Protein 6.7 GM/DL Albumin 3.0 GM/DL Physical Exam General General Appearance: No Acute Distress, Comfortable Eyes Eye Exam: Pupils Equal, Pupils Reactive, Sclera White, Extraocular Movement Intact Ears & Nose Ears & Nose Exam: Nasal Mucosa Matheny Throat Throat Exam: Oral Mucosa Matheny & Moist, Oral Pharynx Normal Neck Neck Exam: Neck Supple, Trachea Midline Pulmonary Resp Exam: Clear Bilaterally, Breath Sounds Equal Cardiology CV Exam: Regular, Normal Sinus Rhythm Gastrointestinal/Abdomen GI Exam: Soft, Non-Tender, Bowel Sounds Present Musculoskeletal MS Exam: Joints Intact, Normal Tone Integumentary Skin Remarks 5x7 cm irrigular wound with erythema. Extremeties Extremities Exam: No Edema Neurologic Neuro Exam: Alert, Awake, Oriented, Speech Clear, Moving All Extremities, No Focal Deficits VTE Prophylaxis VTE Prophylaxis Meds: Lovenox PUD Prophylasis PUD Prophylaxis: Protonix Assessment/Plan Assessment/Plan ASSESSMENT AND PLAN: 1. This is a 66-year male who came to the emergency room diagnosed with chest pain rule acute coronary syndrome, most likely atypical chest pain. The patient had a stress test done six months ago. The patient was given the option to do a cardiac catheterization, which he refused at that time. Cardiology input noted. no Further recommendation per cardiology. The patient is chest pain-free currently. The patient on aspirin 325 milligrams p.o. daily, nitroglycerin and Lopressor 25 milligrams q. 12-hour and morphine for pain. 2. History of anxiety. Continue home medications. 3. History of depression. Continue home medications. 4. Right leg wound with calf tenderness. Venous Doppler negative for DVT. The patient is on Antibiotic Unysn per ID recommendation... wound care following. checked MRI right leg report discussed with patient no osteomylitis.. and ID. Input noted...wound culture positive for citrobactor freundi complex and Enteroccous avium sensitive to unysn on unysn... s/p wound debridment and hematoma evacuation... s/p wound vac placement. 5. DVT prophylaxis. SCD. 6. GI prophylaxis. Protonix 40 milligrams p.o. daily. 7. Cellulitis of the right lower extremity. The patient is on antibiotics. 8. Severe right leg pain on Lortab started Dilaudid. Discussed Condition with: Patient Camden Rizo MD Nov 21, 2016 05:55
--- NOTE | 2016-11-21 07:54 | MB ---
cc: GONSALO ARREGUIN MD DATE OF CONSULTATION 11/20/2016 REASON FOR CONSULTATION Right lower extremity abscess. HISTORY OF PRESENT ILLNESS The patient is a 66-year-old male who presented to [facility] with complaints of right lower extremity pain along with chest pain and anxiety. The patient underwent workup of his chest pain and anxiety with a negative cardiac workup. Further focus on his right lower extremity including an MRI showing a significant abscess. The patient also had further ultrasound studies ruling out any DVT and a confirmation of abscess. Surgery was consulted for further evaluation and operative management. On my exam and further questioning, the patient was noted to be working on a deck approximately two weeks ago when he slipped through the boards and had significant trauma to his right lower extremity. He notes initial scraping of skin with minimal bleeding and contusion. He was followed up by a primary care physician for which due to his pain continuing to get worse and concerns for infection, was attempted to be placed on antibiotics without success. Again, the patient presented with the complaints as above. The patient denies any significant fevers or chills. He does complain of right lower extremity pain, but also notes a full range of motion of this extremity. He describes the pain as a sharp 5/10 localized to the right anterior leg. The pain continues to get worse and is constant. The pain and better with lying still and worse with activity. PAST MEDICAL HISTORY 1. Anxiety 2. Reflux 3. Sleep apnea PAST SURGICAL HISTORY The patient has no previous surgeries. MEDICATIONS 1. Lorazepam 2. Wellbutrin 3. Ancef FAMILY HISTORY The patient denies diabetes. Mother with cancer. SOCIAL HISTORY The patient denies smoking, ETOH or IVDA. ALLERGIES The patient has no known drug allergies. REVIEW OF SYSTEMS GENERAL: The patient denies fevers. INTEGUMENT: Complained of rash and lesion to the right lower extremity. HEENT: Denies eye pain, ear pain. NECK: Denies swelling or wheeze. RESPIRATORY: Denies cough or shortness of breath. CARDIOVASCULAR: Complains of palpitations. Denies irregular rhythm. GI: Denies nausea or vomiting. MUSCULOSKELETAL: Complained of myalgia. Denies arthralgias. NEUROLOGIC: Denies change in sensorium or focal numbness. HEMATOLOGIC: Denies easy bleeding or bruising. : Denies hematuria or dysuria. PSYCH: Denies change in affect or mood. PHYSICAL EXAMINATION The patient no acute distress. VITAL SIGNS: Temperature 96.4, pulse 66, respiration 20, blood pressure with 124/79, saturation 94% on room air. HEENT: PERRLA, equal and reactive. No scleral icterus. NECK: Supple. Trachea midline. CHEST: Clear to auscultation bilateral expansion. HEART: S1-S2 regular rate and rhythm. ABDOMEN: Soft, nontender, nondistended. EXTREMITIES: Approximately 9 cm x 9 cm eschar necrotic area on the anterior lateral mid leg and 2+, palpable pulses all extremities. SKIN: As above. No other obvious lesions. NEUROLOGIC: GCS of 15. Moving all extremities. 5/5 motor. LABORATORY AND DIAGNOSTIC DATA WBC 6.3, hemoglobin 14.9, hematocrit 43.5, platelets 199. Sodium 143, potassium 4.1, chloride 105, BUN 12, creatinine 1.3, glucose 78, AST 12, ALT 17, alk phos 70, albumin 2.9. Coagulation PT 10.8, INR 1. IMAGING STUDIES Reviewed by myself right lower extremity x-ray, no evidence of fracture abnormality. Right lower extremity ultrasound, no evidence of DVT. Fluid collection 5 x 5 x 1 cm. Lower extremity MRI rim enhancing complex subcutaneous right lower extremity with inflammatory changes, edema and cellulitis. ASSESSMENT A 66-year-old male with right lower extremity abscess, recent chest pain with a negative cardiac workup. PLAN After full radiologic, clinical and laboratory workup of a patient with above-named complaints, the patient has concern for infection and right lower extremity cellulitis with an abscess collection. At this point, I recommend the patient be transferred over from [place] to [place] to undergo operative intervention including drainage and incision of abscess with possible Vac placement. This was discussed with the patient in detail. The patient stated understanding and agreed and would like to proceed. Further continue with IV antibiotics. We will make the patient n.p.o. continue pain control and recheck labs. Thank you for this consultation. MD ANDREA Tony/JUNE /7:06 AM /7:28 AM
[2016-11-21] MEDS: METOPROLOL TARTRATE 25 MG TAB PO SCH ×2 (08:49→20:57)
[2016-11-21] MEDS: ASPIRIN EC 325 MG TABEC PO SCH (08:49)
[2016-11-21] MEDS: PANTOPRAZOLE SOD 40 MG DELAYED RELEASE TAB PO SCH (08:49)
[2016-11-21] MEDS: buPROPion HCL 100 MG SUSTAINED RELEASE TAB PO SCH ×2 (08:49→20:56)
[2016-11-21] MEDS: LACTATED RINGER'S 1000 ML IV SCH (14:15)
[2016-11-21] MEDS ORDERED: HYDROmorphone HCL PF 1 MG/ML VIAL IV PUSH PRN (18:45)
--- NOTE | 2016-11-21 18:53 | HHI.PR ---
Subjective Subjective Notes Somewhat painful since surgery; did not sleep well last night Objective Vitals/I&O Vital Signs Date Time Temp Pulse Resp B/P Pulse Ox O2 Delivery O2 Flow Rate FiO2 11/21/16 18:11 95 21 11/21/16 16:00 96.4 60 18 104/68 11/20/16 19:30 Room Air 11/20/16 19:00 2 Labs Laboratory Tests Test 11/21/16 04:04 White Blood Count 6.0 Red Blood Count 4.44 Hemoglobin 14.6 Hematocrit 42.3 Mean Corpuscular Volume 95.3 Mean Corpuscular Hemoglobin 32.9 Mean Corpuscular Hemoglobin 34.6 Concent Red Cell Distribution Width 13.2 Platelet Count 214 Mean Platelet Volume 8.5 Neutrophils (%) (Auto) 85.0 Lymphocytes (%) (Auto) 9.7 Monocytes (%) (Auto) 5.1 Eosinophils (%) (Auto) 0.0 Basophils (%) (Auto) 0.2 Neutrophils # (Auto) 5.1 Lymphocytes # (Auto) 0.6 Monocytes # (Auto) 0.3 Eosinophils # (Auto) 0.0 Basophils # (Auto) 0.0 CBC Comment DIFF FINAL Differential Comment Sodium Level 139 Potassium Level 4.2 Chloride Level 104 Carbon Dioxide Level 26.8 Anion Gap 8 Blood Urea Nitrogen 16 Creatinine 1.35 Estimat Glomerular Filtration 53 Rate Random Glucose 126 Calcium Level 8.3 Total Bilirubin 0.5 Aspartate Amino Transf 13 (AST/SGOT) Alanine Aminotransferase 18 (ALT/SGPT) Alkaline Phosphatase 71 Total Protein 6.7 Albumin 3.0 Lungs: Clear Abdomen: Non-distended Narrative Exam Wound VAC intact; minimal drainage in canister Minimal erythema around sponge in skin A/P Assessment and Plan Assessment: POD #1 I&D Right leg hematoma, infected Plan: Modify pain control Change VAC on Thursday; probably at bedside vs. starting wet to dry dressings. Tl Virgen MD Nov 21, 2016 18:53
--- NOTE | 2016-11-21 22:13 | HHI.IDPN ---
Subjective Subjective Remarks delayed entry pt was seen earlier today Previously seen by Dr Arredondo chart reviewed 67 yo M with infected hematoma of R calf s/p I+D and VAC palcemnet co paina nd swelling of RLE, states it hasnot changed p surgery no fever Antibiotics Unasyn Allergies: Coded Allergies: No Known Allergies (Unverified , 11/16/16) Objective . Vital Signs Date Time Temp Pulse Resp B/P Pulse Ox O2 Delivery O2 Flow Rate FiO2 11/21/16 18:11 95 21 11/21/16 16:00 96.4 60 18 104/68 95 11/21/16 11:51 96.8 63 18 110/65 97 11/21/16 10:00 97 21 11/21/16 08:00 96.2 64 18 113/68 95 11/21/16 04:00 96.0 60 19 98/57 94 11/21/16 00:46 19 11/21/16 00:26 97 21 11/21/16 00:00 96.1 97 19 110/ 96 11/20/16 11/20/16 11/21/16 15:00 23:00 07:00 Intake Total 840 ml 100 ml Output Total 50 ml 0 ml Balance 790 ml 100 ml Intake Oral 240 ml IV Total 300 ml 100 ml Other 300 ml Output Urine Total 0 ml Drainage Total 0 ml Estimated Blood Loss 50 ml Other 0 ml # Voids 0 # Bowel Movements 0 . Laboratory Tests Test 11/20/16 11/21/16 05:20 04:04 White Blood Count 6.3 TH/MM3 6.0 TH/MM3 Red Blood Count 4.55 MIL/MM3 4.44 MIL/MM3 Hemoglobin 14.9 GM/DL 14.6 GM/DL Hematocrit 43.5 % 42.3 % Mean Corpuscular Volume 95.5 FL 95.3 FL Mean Corpuscular Hemoglobin 32.8 PG 32.9 PG Mean Corpuscular Hemoglobin 34.3 % 34.6 % Concent Red Cell Distribution Width 12.6 % 13.2 % Platelet Count 199 TH/MM3 214 TH/MM3 Mean Platelet Volume 8.2 FL 8.5 FL Neutrophils (%) (Auto) 49.4 % 85.0 % Lymphocytes (%) (Auto) 30.3 % 9.7 % Monocytes (%) (Auto) 13.8 % 5.1 % Eosinophils (%) (Auto) 5.8 % 0.0 % Basophils (%) (Auto) 0.7 % 0.2 % Neutrophils # (Auto) 3.1 TH/MM3 5.1 TH/MM3 Lymphocytes # (Auto) 1.9 TH/MM3 0.6 TH/MM3 Monocytes # (Auto) 0.9 TH/MM3 0.3 TH/MM3 Eosinophils # (Auto) 0.4 TH/MM3 0.0 TH/MM3 Basophils # (Auto) 0.0 TH/MM3 0.0 TH/MM3 CBC Comment DIFF FINAL DIFF FINAL Differential Comment Laboratory Tests Test 11/20/16 11/21/16 05:20 04:04 Sodium Level 143 MEQ/L 139 MEQ/L Potassium Level 4.1 MEQ/L 4.2 MEQ/L Chloride Level 105 MEQ/L 104 MEQ/L Carbon Dioxide Level 30.2 MEQ/L 26.8 MEQ/L Anion Gap 8 MEQ/L 8 MEQ/L Blood Urea Nitrogen 12 MG/DL 16 MG/DL Creatinine 1.30 MG/DL 1.35 MG/DL Estimat Glomerular Filtration 56 ML/MIN 53 ML/MIN Rate Random Glucose 78 MG/DL 126 MG/DL Calcium Level 8.2 MG/DL 8.3 MG/DL Total Bilirubin 0.4 MG/DL 0.5 MG/DL Aspartate Amino Transf 12 U/L 13 U/L (AST/SGOT) Alanine Aminotransferase 17 U/L 18 U/L (ALT/SGPT) Alkaline Phosphatase 70 U/L 71 U/L Total Protein 6.4 GM/DL 6.7 GM/DL Albumin 2.9 GM/DL 3.0 GM/DL Imaging Last Impressions Lower Extremity MRI 11/18/16 0000 Signed Impressions: Service Date/Time: Friday, November 18, 2016 13:57 - CONCLUSION: Rim- enhancing complex hematoma or phlegmonous mass in the subcutaneous right leg associated with inflammatory changes and mild surrounding edema or cellulitis. Cannot exclude an infected hematoma. Unclear if this is drainable. No associated bony abnormalities or significant involvement of the musculature. Willie Reyes MD Chest X-Ray 11/16/16 0948 Signed Impressions: Service Date/Time: Wednesday, November 16, 2016 10:00 - CONCLUSION: Normal examination. Stanislaw Rodriges MD Tibia/Fibula X-Ray 11/16/16 0000 Signed Impressions: Service Date/Time: Wednesday, November 16, 2016 10:01 - CONCLUSION: No acute disease. Stanislaw Rodriges MD Lower Extremity Ultrasound 11/16/16 0000 Signed Impressions: Service Date/Time: Wednesday, November 16, 2016 11:53 - CONCLUSION: No evidence for DVT. At the level of the patient's wound a 5 x 5.7 x 0.9 cm subcutaneous fluid collection is noted. Stanislaw Rodriges MD Physical Exam GENERAL: This is a well-nourished, well-developed patient, in no apparent distress. SKIN: No rashes, Cool and dryc HEAD: Atraumatic. Normocephalic. No temporal or scalp tenderness. EYES: Pupils equal round and reactive. Extraocular motions intact. No scleral icterus. No injection or drainage. CARDIOVASCULAR: Regular rate and rhythm without murmurs, gallops, or rubs. RESPIRATORY: Clear to auscultation. Breath sounds equal bilaterally. No wheezes , rales, or rhonchi. GASTROINTESTINAL: Abdomen soft, non-tender, nondistended. No hepato-splenomegaly , or palpable masses. No guarding. MUSCULOSKELETAL: Extremities without clubbing, cyanosis, or edema. N RLE is edematous, erythematous in lateral calf area VCA in place, area around wounder indurated and tender tompalpaton VAC with seroasangious dc NEUROLOGICAL: Awake and alert. Non focal Assessment & Plan Remarks Infected hematoma, abscess and cellulitis of leg, R calf, clx with citrobacter , Enterococcus ? anaerobs sp debridement 11/21 - cont Unasyn - add levaquine for citrobacter - monitor clinical response rachna RN at b/s Purvi Keys MD Nov 21, 2016 22:13
[2016-11-21] MEDS: MORPHINE SULFATE 4 MG/ML INJ IV PRN (22:31)
[2016-11-21] MEDS: LEVOFLOXACIN 750 MG PREMIX INJ 150 ML IV SCH (23:51)
[2016-11-21] MEDS: SODIUM CHLORIDE 0.9% FLUSH 5 ML FLUSH IVF PRN (23:52)
[2016-11-22] VITALS: BP 125/69; PULSE 55; RESP 19; TEMP 96.3; O2SAT 97
[2016-11-22] MEDS: LORazepam 1 MG TAB PO PRN (04:22)
[2016-11-22] MEDS: ACETAMINOPHEN/HYDROcodone 325 MG/5 MG TAB PO PRN ×3 (04:26→19:44)
[2016-11-22] MEDS: MUPIROCIN 2% CREAM 15 GM TOPICAL SCH ×3 (05:53→19:44)
[2016-11-22] MEDS: NITROGLYCERIN 2% OINT 1 GM PACKET TOPICAL SCH ×3 (05:53→17:40)
[2016-11-22] MEDS: AMPICILLIN/SULBAC 3 GM/NS 100 ML IV SCH ×8 (05:53→22:10)
--- NOTE | 2016-11-22 07:04 | HHI.PR ---
Subjective History of Present Illness Patient feel better right leg wound better checked MRI right leg ID. input noted all question answered patient happy with care provided. wound culture positive for citrobactor freundi complex and Enteroccous avium sensitive to unysn on unysn... s/p wound debridment and hematoma evacuation...wound vac in place....Right leg pain on morphine. wants regular diet. d/w RN at bed side. Review of Systems Constitutional Constitutional: Fatigue Integumentary Skin Remarks right leg wound with redness. Vitals/Results Intake & Output 11/21/16 11/21/16 11/22/16 15:00 23:00 07:00 Intake Total 665 ml 345 ml 440 ml Output Total 10 ml 10 ml Balance 655 ml 345 ml 430 ml Intake Oral 560 ml 240 ml 240 ml IV Total 105 ml 105 ml 200 ml Drainage Total 10 ml 10 ml # Voids 3 2 2 # Bowel Movements 1 0 1 Vital Signs Vital Signs Date Time Temp Pulse Resp B/P Pulse Ox O2 Delivery O2 Flow Rate FiO2 11/22/16 00:00 96.3 55 19 125/69 97 11/21/16 20:00 96.4 57 20 138/91 97 11/21/16 18:11 95 21 11/21/16 16:00 96.4 60 18 104/68 95 11/21/16 11:51 96.8 63 18 110/65 97 11/21/16 10:00 97 21 11/21/16 08:00 96.2 64 18 113/68 95 CBC/BMP: 11/21/16 0404 11/21/16 0404 Physical Exam General General Appearance: No Acute Distress, Comfortable Eyes Eye Exam: Pupils Equal, Pupils Reactive, Sclera White, Extraocular Movement Intact Ears & Nose Ears & Nose Exam: Nasal Mucosa [place] Throat Throat Exam: Oral Mucosa [place] & Moist, Oral Pharynx Normal Neck Neck Exam: Neck Supple, Trachea Midline Pulmonary Resp Exam: Clear Bilaterally, Breath Sounds Equal Cardiology CV Exam: Regular, Normal Sinus Rhythm Gastrointestinal/Abdomen GI Exam: Soft, Non-Tender, Bowel Sounds Present Musculoskeletal MS Exam: Joints Intact, Normal Tone Integumentary Skin Remarks 5x7 cm irrigular wound with erythema. Extremeties Extremities Exam: No Edema Neurologic Neuro Exam: Alert, Awake, Oriented, Speech Clear, Moving All Extremities, No Focal Deficits VTE Prophylaxis VTE Prophylaxis Meds: Lovenox PUD Prophylasis PUD Prophylaxis: Protonix Assessment/Plan Assessment/Plan ASSESSMENT AND PLAN: 1. This is a 66-year male who came to the emergency room diagnosed with chest pain rule acute coronary syndrome, most likely atypical chest pain. The patient had a stress test done six months ago. The patient was given the option to do a cardiac catheterization, which he refused at that time. Cardiology input noted. no Further recommendation per cardiology. The patient is chest pain-free currently. The patient on aspirin 325 milligrams p.o. daily, nitroglycerin and Lopressor 25 milligrams q. 12-hour and morphine for pain. 2. History of anxiety. Continue home medications. 3. History of depression. Continue home medications. 4. Right leg wound with calf tenderness. Venous Doppler negative for DVT. The patient is on Antibiotic Unysn per ID recommendation... wound care following. checked MRI right leg report discussed with patient no osteomylitis.. and ID. Input noted...wound culture positive for citrobactor freundi complex and Enteroccous avium sensitive to unysn on unysn... s/p wound debridment and hematoma evacuation... s/p wound vac placement. 5. DVT prophylaxis. SCD left leg.. 6. GI prophylaxis. Protonix 40 milligrams p.o. daily. 7. Cellulitis of the right lower extremity. The patient is on antibiotics. 8. Severe right leg pain on Lortab and morphine. Check CBC with diff CMP in AM. Discussed Condition with: Patient Camden Rizo MD Nov 22, 2016 07:04
[2016-11-22 07:14] LABS: AUTOMATED NEUTROPHIL # 2.6 TH/MM3 (1.8-7.7); BASOPHIL # 0.1 TH/MM3 (0-0.2); EOSINOPHIL # 0.2 TH/MM3 (0-0.4); EOSINOPHIL % 4.2 % (0.0-4.0); HEMATOCRIT 42.3 % (39.0-51.0); HEMO FLAGS DIFF FINAL; LYMPH % 37.5 % (9.0-44.0); LYMPHOCYTE # 2.1 TH/MM3 (1.0-4.8); MEAN CELL VOLUME 95.9 FL (80.0-100.0); MEAN CORPUSCULAR HEMOGLOBIN 32.8 PG (27.0-34.0); MEAN CORPUSCULAR HGB CONC 34.2 % (32.0-36.0); MONO % 11.9 % (0.0-8.0); NEUT % 45.4 % (16.0-70.0); PLATELET COUNT 187 TH/MM3 (150-450); RED BLOOD COUNT 4.41 MIL/MM3 (4.50-5.90); RED CELL DISTRIBUTION WIDTH 13.5 % (11.6-17.2); WHITE BLOOD COUNT 5.7 TH/MM3 (4.0-11.0)
[2016-11-22 07:46] LABS: ALKALINE PHOSPHATASE 67 U/L (45-117); ALT (GPT) 22 U/L (12-78); ANION GAP 7 MEQ/L (5-15); AST (GOT) 16 U/L (15-37); BICARBONATE 27.8 MEQ/L (21.0-32.0); BLOOD UREA NITROGEN 17 MG/DL (7-18); CHLORIDE 107 MEQ/L (98-107); GLOMERULAR FILTRATION RATE 56 ML/MIN (>89); SODIUM (NA) 142 MEQ/L (136-145); TOTAL BILIRUBIN ADULT 0.3 MG/DL (0.2-1.0)
[2016-11-22 08:00] VITALS: BP 118/72; PULSE 50; RESP 16; TEMP 97.1; O2SAT 99
[2016-11-22] MEDS: PANTOPRAZOLE SOD 40 MG DELAYED RELEASE TAB PO SCH (09:51)
[2016-11-22] MEDS: buPROPion HCL 100 MG SUSTAINED RELEASE TAB PO SCH ×2 (09:51→19:44)
[2016-11-22] MEDS: ASPIRIN EC 325 MG TABEC PO SCH (09:51)
[2016-11-22] MEDS: METOPROLOL TARTRATE 25 MG TAB PO SCH ×2 (09:51→19:44)
[2016-11-22 12:00] VITALS: BP 108/71; PULSE 55; RESP 17; TEMP 96.9; O2SAT 96
[2016-11-22] MEDS: LACTATED RINGER'S 1000 ML IV SCH (14:15)
[2016-11-22 16:00] VITALS: BP 113/66; PULSE 60; RESP 16; TEMP 96.2; O2SAT 95
[2016-11-22 20:00] VITALS: BP 119/66; PULSE 58; RESP 20; TEMP 96.3; O2SAT 95
[2016-11-22] MEDS: MORPHINE SULFATE 4 MG/ML INJ IV PRN (22:10)
[2016-11-22] MEDS: LEVOFLOXACIN 750 MG PREMIX INJ 150 ML IV SCH (22:10)
[2016-11-23] VITALS: BP 127/77; PULSE 52; RESP 18; TEMP 97.3; O2SAT 96
[2016-11-23] MEDS: LORazepam 1 MG TAB PO PRN ×3 (01:30→21:31)
[2016-11-23] MEDS: ACETAMINOPHEN/HYDROcodone 325 MG/5 MG TAB PO PRN ×3 (03:59→21:31)
[2016-11-23] MEDS: NITROGLYCERIN 2% OINT 1 GM PACKET TOPICAL SCH ×4 (05:45→09:50)
[2016-11-23] MEDS: AMPICILLIN/SULBAC 3 GM/NS 100 ML IV SCH ×8 (05:45→23:06)
[2016-11-23] MEDS: MUPIROCIN 2% CREAM 15 GM TOPICAL SCH ×3 (05:45→20:30)
[2016-11-23] MEDS: METOPROLOL TARTRATE 25 MG TAB PO SCH ×2 (07:48→20:29)
[2016-11-23] MEDS: PANTOPRAZOLE SOD 40 MG DELAYED RELEASE TAB PO SCH (07:49)
[2016-11-23] MEDS: buPROPion HCL 100 MG SUSTAINED RELEASE TAB PO SCH ×2 (07:49→20:28)
[2016-11-23] MEDS: ASPIRIN EC 325 MG TABEC PO SCH (07:49)
[2016-11-23 08:00] VITALS: BP 129/78; PULSE 60; RESP 16; TEMP 97.4; O2SAT 95
[2016-11-23] MEDS ORDERED: HYDROmorphone HCL PF 1 MG/ML VIAL ONE (09:04)
[2016-11-23] MEDS: HYDROmorphone HCL PF 1 MG/ML VIAL IV PUSH PRN ×2 (09:08→23:07)
--- NOTE | 2016-11-23 09:31 | HHI.PR ---
Subjective History of Present Illness Patient feel better right leg wound better checked MRI right leg no osteomylitis ID. input noted all question answered patient happy with care provided. wound culture positive for citrobactor freundi complex and Enteroccous avium sensitive to unysn on unysn... s/p wound debridment and hematoma evacuation.....Right leg pain on dilaudid . on regular diet. Review of Systems Constitutional Constitutional: Fatigue Integumentary Skin Remarks right leg wound with redness. Vitals/Results Intake & Output 11/22/16 11/22/16 11/23/16 15:00 23:00 07:00 Intake Total 600 ml 480 ml 240 ml Output Total 0 ml Balance 600 ml 480 ml 240 ml Intake Oral 600 ml 480 ml 240 ml Drainage Total 0 ml # Voids 3 2 2 # Bowel Movements 1 1 0 Vital Signs Vital Signs Date Time Temp Pulse Resp B/P Pulse Ox O2 Delivery O2 Flow Rate FiO2 11/23/16 08:00 97.4 60 16 129/78 95 11/23/16 04:59 16 11/23/16 00:00 97.3 52 18 127/77 96 11/22/16 22:15 16 11/22/16 20:00 96.3 58 20 119/66 95 11/22/16 16:00 96.2 60 16 113/66 95 11/22/16 12:00 96.9 55 17 108/71 96 CBC/BMP: 11/22/16 0633 11/22/16 0633 Physical Exam General General Appearance: No Acute Distress, Comfortable Eyes Eye Exam: Pupils Equal, Pupils Reactive, Sclera White, Extraocular Movement Intact Ears & Nose Ears & Nose Exam: Nasal Mucosa [place] Throat Throat Exam: Oral Mucosa [place] & Moist, Oral Pharynx Normal Neck Neck Exam: Neck Supple, Trachea Midline Pulmonary Resp Exam: Clear Bilaterally, Breath Sounds Equal Cardiology CV Exam: Regular, Normal Sinus Rhythm Gastrointestinal/Abdomen GI Exam: Soft, Non-Tender, Bowel Sounds Present Musculoskeletal MS Exam: Joints Intact, Normal Tone Integumentary Skin Remarks 5x7 cm irrigular wound with erythema. Extremeties Extremities Exam: No Edema Neurologic Neuro Exam: Alert, Awake, Oriented, Speech Clear, Moving All Extremities, No Focal Deficits VTE Prophylaxis VTE Prophylaxis Meds: Lovenox PUD Prophylasis PUD Prophylaxis: Protonix Assessment/Plan Assessment/Plan ASSESSMENT AND PLAN: 1. This is a 66-year male who came to the emergency room diagnosed with chest pain rule acute coronary syndrome, most likely atypical chest pain. The patient had a stress test done six months ago. The patient was given the option to do a cardiac catheterization, which he refused at that time. Cardiology input noted. no Further recommendation per cardiology. The patient is chest pain-free currently. The patient on aspirin 325 milligrams p.o. daily, nitroglycerin and Lopressor 25 milligrams q. 12-hour and morphine for pain. 2. History of anxiety. Continue home medications. 3. History of depression. Continue home medications. 4. Right leg wound with calf tenderness. Venous Doppler negative for DVT. The patient is on Antibiotic Unysn + Levaquin per ID recommendation... wound care following. checked MRI right leg report discussed with patient no osteomylitis.. and ID. 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 S/P wound debridment and hematoma evacuation.. 5. DVT prophylaxis. SCD left leg.. 6. GI prophylaxis. Protonix 40 milligrams p.o. daily. 7. Cellulitis of the right lower extremity. The patient is on antibiotics. 8. Severe right leg pain on Lortab and Dilaudid. Check CBC with diff CMP in AM. Discussed Condition with: Patient Camden Rizo MD Nov 23, 2016 09:31
[2016-11-23] MEDS: LACTATED RINGER'S 1000 ML IV SCH (09:48)
--- NOTE | 2016-11-23 09:50 | HHI.PR ---
Subjective Subjective Notes Did not sleep well last night No fevers or chills, however. Objective Vitals/I&O Vital Signs Date Time Temp Pulse Resp B/P Pulse Ox O2 Delivery O2 Flow Rate FiO2 11/23/16 08:00 97.4 60 16 129/78 95 11/21/16 18:11 21 11/20/16 19:30 Room Air 11/20/16 19:00 2 Cardiovascular: Regular Lungs: Clear Extremities: No edema Narrative Exam Wound VAC removed; minimal drainage in canister Wound with viable tissue; cleaned and dressed with saline gauze. A/P Assessment and Plan Assessment: POD #3 I&D Right leg hematoma, infected Plan: Start wet to dry dressing changes BID. Tl Virgen MD Nov 23, 2016 09:49
[2016-11-23 10:51] LABS: AUTOMATED NEUTROPHIL # 4.3 TH/MM3 (1.8-7.7); BASOPHIL # 0.1 TH/MM3 (0-0.2); BASOPHIL % 1.3 % (0.0-2.0); EOSINOPHIL # 0.2 TH/MM3 (0-0.4); EOSINOPHIL % 2.8 % (0.0-4.0); HEMATOCRIT 44.6 % (39.0-51.0); HEMO FLAGS DIFF FINAL; LYMPH % 19.9 % (9.0-44.0); LYMPHOCYTE # 1.3 TH/MM3 (1.0-4.8); MEAN CELL VOLUME 94.8 FL (80.0-100.0); MEAN CORPUSCULAR HEMOGLOBIN 33.3 PG (27.0-34.0); MEAN CORPUSCULAR HGB CONC 35.1 % (32.0-36.0); MONO % 9.7 % (0.0-8.0); NEUT % 66.3 % (16.0-70.0); PLATELET COUNT 227 TH/MM3 (150-450); RED BLOOD COUNT 4.71 MIL/MM3 (4.50-5.90); RED CELL DISTRIBUTION WIDTH 13.3 % (11.6-17.2); WHITE BLOOD COUNT 6.5 TH/MM3 (4.0-11.0)
[2016-11-23 11:29] LABS: ALT (GPT) 24 U/L (12-78); ANION GAP 6 MEQ/L (5-15); AST (GOT) 11 U/L (15-37); BICARBONATE 27.7 MEQ/L (21.0-32.0); BLOOD UREA NITROGEN 17 MG/DL (7-18); CHLORIDE 106 MEQ/L (98-107); GLOMERULAR FILTRATION RATE 55 ML/MIN (>89); POTASSIUM 4.5 MEQ/L (3.5-5.1); SODIUM (NA) 140 MEQ/L (136-145)
[2016-11-23 11:31] LABS: ALKALINE PHOSPHATASE 70 U/L (45-117); TOTAL BILIRUBIN ADULT 0.3 MG/DL (0.2-1.0)
[2016-11-23 12:00] VITALS: BP 116/74; PULSE 57; RESP 17; TEMP 96.2; O2SAT 97
[2016-11-23 16:00] VITALS: BP 113/60; PULSE 58; RESP 16; TEMP 96.7; O2SAT 97
[2016-11-23 18:42] VITALS: O2SAT 97
[2016-11-23 20:00] VITALS: BP 121/76; PULSE 63; RESP 18; TEMP 96.2; O2SAT 98
[2016-11-23] MEDS: LEVOFLOXACIN 750 MG PREMIX INJ 150 ML IV SCH (21:32)
[2016-11-24] VITALS: BP 128/82; PULSE 58; RESP 18; TEMP 96.6; O2SAT 97
[2016-11-24] MEDS: ACETAMINOPHEN/HYDROcodone 325 MG/5 MG TAB PO PRN ×4 (05:07→20:27)
[2016-11-24] MEDS: AMPICILLIN/SULBAC 3 GM/NS 100 ML IV SCH ×2 (05:08)
[2016-11-24 05:40] LABS: AUTOMATED NEUTROPHIL # 3.6 TH/MM3 (1.8-7.7); BASOPHIL # 0.1 TH/MM3 (0-0.2); BASOPHIL % 0.8 % (0.0-2.0); EOSINOPHIL # 0.4 TH/MM3 (0-0.4); EOSINOPHIL % 5.3 % (0.0-4.0); HEMATOCRIT 42.7 % (39.0-51.0); HEMO FLAGS DIFF FINAL; LYMPH % 28.4 % (9.0-44.0); LYMPHOCYTE # 1.9 TH/MM3 (1.0-4.8); MEAN CELL VOLUME 94.5 FL (80.0-100.0); MEAN CORPUSCULAR HEMOGLOBIN 32.9 PG (27.0-34.0); MEAN CORPUSCULAR HGB CONC 34.9 % (32.0-36.0); MONO % 11.9 % (0.0-8.0); NEUT % 53.6 % (16.0-70.0); PLATELET COUNT 213 TH/MM3 (150-450); RED BLOOD COUNT 4.52 MIL/MM3 (4.50-5.90); RED CELL DISTRIBUTION WIDTH 13.2 % (11.6-17.2); WHITE BLOOD COUNT 6.7 TH/MM3 (4.0-11.0)
[2016-11-24 05:52] LABS: ALT (GPT) 22 U/L (12-78); ANION GAP 7 MEQ/L (5-15); AST (GOT) 13 U/L (15-37); BICARBONATE 28.4 MEQ/L (21.0-32.0); BLOOD UREA NITROGEN 15 MG/DL (7-18); CHLORIDE 105 MEQ/L (98-107); GLOMERULAR FILTRATION RATE 58 ML/MIN (>89); POTASSIUM 4.2 MEQ/L (3.5-5.1); SODIUM (NA) 140 MEQ/L (136-145)
[2016-11-24 05:54] LABS: ALKALINE PHOSPHATASE 70 U/L (45-117); TOTAL BILIRUBIN ADULT 0.3 MG/DL (0.2-1.0)
[2016-11-24] MEDS: NITROGLYCERIN 2% OINT 1 GM PACKET TOPICAL SCH ×4 (06:00→18:00)
[2016-11-24] MEDS: MUPIROCIN 2% CREAM 15 GM TOPICAL SCH ×2 (06:00→20:22)
[2016-11-24 08:00] VITALS: BP 121/75; PULSE 56; RESP 19; TEMP 95.6; O2SAT 99
[2016-11-24] MEDS: PANTOPRAZOLE SOD 40 MG DELAYED RELEASE TAB PO SCH (08:22)
[2016-11-24] MEDS: ASPIRIN EC 325 MG TABEC PO SCH (08:22)
[2016-11-24] MEDS: buPROPion HCL 100 MG SUSTAINED RELEASE TAB PO SCH ×2 (08:22→20:19)
[2016-11-24] MEDS: LORazepam 1 MG TAB PO PRN (08:50)
[2016-11-24] MEDS: METOPROLOL TARTRATE 25 MG TAB PO SCH ×2 (09:00→20:19)
[2016-11-24 10:55] VITALS: O2SAT 96
--- NOTE | 2016-11-24 11:58 | HHI.PR ---
Subjective History of Present Illness Patient feel better right leg wound better ID. input noted all question answered patient happy with care provided. s/p wound debridment and hematoma evacuation.....Right leg pain on dilaudid . D/W SHIRLEY Mccartney at bed side. Review of Systems Constitutional Constitutional: Fatigue Integumentary Skin Remarks right leg wound with redness. Vitals/Results Intake & Output 11/23/16 11/23/16 11/24/16 15:00 23:00 07:00 Intake Total 1200 ml 440 ml 240 ml Balance 1200 ml 440 ml 240 ml Intake Oral 1200 ml 240 ml 240 ml IV Total 200 ml # Voids 4 1 2 # Bowel Movements 1 0 0 Vital Signs Vital Signs Date Time Temp Pulse Resp B/P Pulse Ox O2 Delivery O2 Flow Rate FiO2 11/24/16 10:55 96 21 11/24/16 08:00 95.6 56 19 121/75 99 11/24/16 06:08 16 11/24/16 00:00 96.6 58 18 128/82 97 11/23/16 23:37 16 11/23/16 20:00 96.2 63 18 121/76 98 11/23/16 18:42 97 21 11/23/16 16:00 96.7 58 16 113/60 97 11/23/16 12:00 96.2 57 17 116/74 97 CBC/BMP: 11/24/16 0421 11/24/16 0421 Lab Results Laboratory Tests Test 11/24/16 04:21 White Blood Count 6.7 TH/MM3 Red Blood Count 4.52 MIL/MM3 Hemoglobin 14.9 GM/DL Hematocrit 42.7 % Mean Corpuscular Volume 94.5 FL Mean Corpuscular Hemoglobin 32.9 PG Mean Corpuscular Hemoglobin 34.9 % Concent Red Cell Distribution Width 13.2 % Platelet Count 213 TH/MM3 Mean Platelet Volume 8.6 FL Neutrophils (%) (Auto) 53.6 % Lymphocytes (%) (Auto) 28.4 % Monocytes (%) (Auto) 11.9 % Eosinophils (%) (Auto) 5.3 % Basophils (%) (Auto) 0.8 % Neutrophils # (Auto) 3.6 TH/MM3 Lymphocytes # (Auto) 1.9 TH/MM3 Monocytes # (Auto) 0.8 TH/MM3 Eosinophils # (Auto) 0.4 TH/MM3 Basophils # (Auto) 0.1 TH/MM3 CBC Comment DIFF FINAL Differential Comment Sodium Level 140 MEQ/L Potassium Level 4.2 MEQ/L Chloride Level 105 MEQ/L Carbon Dioxide Level 28.4 MEQ/L Anion Gap 7 MEQ/L Blood Urea Nitrogen 15 MG/DL Creatinine 1.25 MG/DL Estimat Glomerular Filtration 58 ML/MIN Rate Random Glucose 83 MG/DL Calcium Level 8.5 MG/DL Total Bilirubin 0.3 MG/DL Aspartate Amino Transf 13 U/L (AST/SGOT) Alanine Aminotransferase 22 U/L (ALT/SGPT) Alkaline Phosphatase 70 U/L Total Protein 6.2 GM/DL Albumin 2.9 GM/DL Physical Exam General General Appearance: No Acute Distress, Comfortable Eyes Eye Exam: Pupils Equal, Pupils Reactive, Sclera White, Extraocular Movement Intact Ears & Nose Ears & Nose Exam: Nasal Mucosa [place] Throat Throat Exam: Oral Mucosa [place] & Moist, Oral Pharynx Normal Neck Neck Exam: Neck Supple, Trachea Midline Pulmonary Resp Exam: Clear Bilaterally, Breath Sounds Equal Cardiology CV Exam: Regular, Normal Sinus Rhythm Gastrointestinal/Abdomen GI Exam: Soft, Non-Tender, Bowel Sounds Present Musculoskeletal MS Exam: Joints Intact, Normal Tone Integumentary Skin Remarks 5x7 cm irrigular wound with erythema. Extremeties Extremities Exam: No Edema Neurologic Neuro Exam: Alert, Awake, Oriented, Speech Clear, Moving All Extremities, No Focal Deficits VTE Prophylaxis VTE Prophylaxis Meds: Lovenox PUD Prophylasis PUD Prophylaxis: Protonix Assessment/Plan Assessment/Plan ASSESSMENT AND PLAN: 1. This is a 66-year male who came to the emergency room diagnosed with chest pain rule acute coronary syndrome, most likely atypical chest pain. The patient had a stress test done six months ago. The patient was given the option to do a cardiac catheterization, which he refused at that time. Cardiology input noted. no Further recommendation per cardiology. The patient is chest pain-free currently. The patient on aspirin 325 milligrams p.o. daily, nitroglycerin and Lopressor 25 milligrams q. 12-hour and morphine for pain. 2. History of anxiety. Continue home medications. 3. History of depression. Continue home medications. 4. Right leg wound with calf tenderness. Venous Doppler negative for DVT. The patient is on Antibiotic Unysn + Levaquin per ID recommendation... wound care following. checked MRI right leg report discussed with patient no osteomylitis.. and ID. 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 S/P wound debridment and hematoma evacuation.. 5. DVT prophylaxis. SCD left leg.. 6. GI prophylaxis. Protonix 40 milligrams p.o. daily. 7. Cellulitis of the right lower extremity. The patient is on antibiotics. 8. Severe right leg pain on Lortab and Dilaudid. Check CBC with diff CMP in AM. Discussed Condition with: Patient Camden Rizo MD Nov 24, 2016 11:58 Camden Rizo MD Nov 24, 2016 11:58
[2016-11-24 12:00] VITALS: BP 118/72; PULSE 69; RESP 18; TEMP 96.5; O2SAT 96
[2016-11-24 16:00] VITALS: BP 116/76; PULSE 63; RESP 18; TEMP 96; O2SAT 94
[2016-11-24] MEDS: HYDROmorphone HCL PF 1 MG/ML VIAL IV PUSH PRN (16:51)
[2016-11-24 20:00] VITALS: BP 131/81; PULSE 60; RESP 18; TEMP 97.8; O2SAT 97
[2016-11-24] MEDS: FAMOTIDINE 20 MG TAB PO SCH (20:19)
[2016-11-24] MEDS: AMOXICILLIN/CLAVULANATE K 875 MG TAB PO SCH (20:20)
[2016-11-25] VITALS: BP 144/84; PULSE 58; RESP 18; TEMP 96.3; O2SAT 97
[2016-11-25 05:40] LABS: AUTOMATED NEUTROPHIL # 4.5 TH/MM3 (1.8-7.7); BASOPHIL # 0.1 TH/MM3 (0-0.2); BASOPHIL % 0.8 % (0.0-2.0); EOSINOPHIL # 0.4 TH/MM3 (0-0.4); HEMATOCRIT 44.7 % (39.0-51.0); HEMO FLAGS DIFF FINAL; LYMPH % 25.6 % (9.0-44.0); MEAN CELL VOLUME 94.3 FL (80.0-100.0); MEAN CORPUSCULAR HEMOGLOBIN 33.2 PG (27.0-34.0); MEAN CORPUSCULAR HGB CONC 35.2 % (32.0-36.0); MONO % 10.9 % (0.0-8.0); NEUT % 57.7 % (16.0-70.0); PLATELET COUNT 225 TH/MM3 (150-450); RED BLOOD COUNT 4.74 MIL/MM3 (4.50-5.90); RED CELL DISTRIBUTION WIDTH 13.3 % (11.6-17.2); WHITE BLOOD COUNT 7.7 TH/MM3 (4.0-11.0)
[2016-11-25 06:00] LABS: ALKALINE PHOSPHATASE 79 U/L (45-117); ALT (GPT) 20 U/L (12-78); ANION GAP 6 MEQ/L (5-15); AST (GOT) 12 U/L (15-37); BICARBONATE 29.6 MEQ/L (21.0-32.0); BLOOD UREA NITROGEN 15 MG/DL (7-18); CHLORIDE 104 MEQ/L (98-107); GLOMERULAR FILTRATION RATE 57 ML/MIN (>89); POTASSIUM 4.2 MEQ/L (3.5-5.1); SODIUM (NA) 140 MEQ/L (136-145); TOTAL BILIRUBIN ADULT 0.4 MG/DL (0.2-1.0)
[2016-11-25] MEDS: NITROGLYCERIN 2% OINT 1 GM PACKET TOPICAL SCH ×4 (06:00→16:10)
[2016-11-25] MEDS: MUPIROCIN 2% CREAM 15 GM TOPICAL SCH ×4 (06:00→22:00)
[2016-11-25] MEDS: ASPIRIN EC 325 MG TABEC PO SCH (07:12)
[2016-11-25] MEDS: METOPROLOL TARTRATE 25 MG TAB PO SCH ×2 (07:12→21:00)
[2016-11-25] MEDS: buPROPion HCL 100 MG SUSTAINED RELEASE TAB PO SCH ×2 (07:12→20:59)
[2016-11-25] MEDS: FAMOTIDINE 20 MG TAB PO SCH ×2 (07:12→20:59)
[2016-11-25] MEDS: AMOXICILLIN/CLAVULANATE K 875 MG TAB PO SCH ×2 (07:12→20:59)
[2016-11-25] MEDS: ACETAMINOPHEN/HYDROcodone 325 MG/5 MG TAB PO PRN ×4 (07:18→21:00)
[2016-11-25] MEDS: LORazepam 1 MG TAB PO PRN ×2 (07:18→16:18)
[2016-11-25 07:57] VITALS: BP 145/79; PULSE 54; RESP 19; TEMP 98.7; O2SAT 98
--- NOTE | 2016-11-25 07:58 | HHI.PR ---
Subjective History of Present Illness Patient feel better right leg wound better ID. input noted all question answered patient happy with care provided. s/p wound debridment and hematoma evacuation.....Right leg pain on dilaudid . D/W SHIRLEY Salazar at bed side. Review of Systems Constitutional Constitutional: Fatigue Integumentary Skin Remarks right leg wound with redness. Vitals/Results Intake & Output 11/24/16 11/24/16 11/25/16 15:00 23:00 07:00 Intake Total 200 ml 960 ml 360 ml Balance 200 ml 960 ml 360 ml Intake Oral 960 ml 360 ml IV Total 200 ml # Voids 5 2 # Bowel Movements 1 0 Vital Signs Vital Signs Date Time Temp Pulse Resp B/P Pulse Ox O2 Delivery O2 Flow Rate FiO2 11/25/16 00:00 96.3 58 18 144/84 97 11/24/16 20:00 97.8 60 18 131/81 97 11/24/16 16:00 96.0 63 18 116/76 94 11/24/16 12:00 96.5 69 18 118/72 96 11/24/16 10:55 96 21 11/24/16 08:00 95.6 56 19 121/75 99 CBC/BMP: 11/25/16 0500 11/25/16 0500 Lab Results Laboratory Tests Test 11/25/16 05:00 White Blood Count 7.7 TH/MM3 Red Blood Count 4.74 MIL/MM3 Hemoglobin 15.7 GM/DL Hematocrit 44.7 % Mean Corpuscular Volume 94.3 FL Mean Corpuscular Hemoglobin 33.2 PG Mean Corpuscular Hemoglobin 35.2 % Concent Red Cell Distribution Width 13.3 % Platelet Count 225 TH/MM3 Mean Platelet Volume 8.6 FL Neutrophils (%) (Auto) 57.7 % Lymphocytes (%) (Auto) 25.6 % Monocytes (%) (Auto) 10.9 % Eosinophils (%) (Auto) 5.0 % Basophils (%) (Auto) 0.8 % Neutrophils # (Auto) 4.5 TH/MM3 Lymphocytes # (Auto) 2.0 TH/MM3 Monocytes # (Auto) 0.8 TH/MM3 Eosinophils # (Auto) 0.4 TH/MM3 Basophils # (Auto) 0.1 TH/MM3 CBC Comment DIFF FINAL Differential Comment Sodium Level 140 MEQ/L Potassium Level 4.2 MEQ/L Chloride Level 104 MEQ/L Carbon Dioxide Level 29.6 MEQ/L Anion Gap 6 MEQ/L Blood Urea Nitrogen 15 MG/DL Creatinine 1.28 MG/DL Estimat Glomerular Filtration 57 ML/MIN Rate Random Glucose 83 MG/DL Calcium Level 8.5 MG/DL Total Bilirubin 0.4 MG/DL Aspartate Amino Transf 12 U/L (AST/SGOT) Alanine Aminotransferase 20 U/L (ALT/SGPT) Alkaline Phosphatase 79 U/L Total Protein 6.6 GM/DL Albumin 3.1 GM/DL Physical Exam General General Appearance: No Acute Distress, Comfortable Eyes Eye Exam: Pupils Equal, Pupils Reactive, Sclera White, Extraocular Movement Intact Ears & Nose Ears & Nose Exam: Nasal Mucosa [place] Throat Throat Exam: Oral Mucosa [place] & Moist, Oral Pharynx Normal Neck Neck Exam: Neck Supple, Trachea Midline Pulmonary Resp Exam: Clear Bilaterally, Breath Sounds Equal Cardiology CV Exam: Regular, Normal Sinus Rhythm Gastrointestinal/Abdomen GI Exam: Soft, Non-Tender, Bowel Sounds Present Musculoskeletal MS Exam: Joints Intact, Normal Tone Integumentary Skin Remarks 5x7 cm irrigular wound with erythema. Extremeties Extremities Exam: No Edema Neurologic Neuro Exam: Alert, Awake, Oriented, Speech Clear, Moving All Extremities, No Focal Deficits VTE Prophylaxis VTE Prophylaxis Meds: Lovenox PUD Prophylasis PUD Prophylaxis: Protonix Assessment/Plan Assessment/Plan ASSESSMENT AND PLAN: 1. This is a 66-year male who came to the emergency room diagnosed with chest pain rule acute coronary syndrome, most likely atypical chest pain. The patient had a stress test done six months ago. The patient was given the option to do a cardiac catheterization, which he refused at that time. Cardiology input noted. no Further recommendation per cardiology. The patient is chest pain-free currently. The patient on aspirin 325 milligrams p.o. daily, nitroglycerin and Lopressor 25 milligrams q. 12-hour and morphine for pain. 2. History of anxiety. Continue home medications. 3. History of depression. Continue home medications. 4. Right leg wound with calf tenderness. Venous Doppler negative for DVT. The patient is on Antibiotic PO Augmentin per ID recommendation... wound care following. checked MRI right leg report discussed with patient no osteomylitis.. and ID. 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 S/P wound debridment and hematoma evacuation.. 5. DVT prophylaxis. SCD left leg.. 6. GI prophylaxis. Protonix 40 milligrams p.o. daily. 7. Cellulitis of the right lower extremity. The patient is on antibiotics. 8. Severe right leg pain on Lortab and Dilaudid. Check CBC with diff CMP in AM. Discussed Condition with: Patient Camden Rizo MD Nov 25, 2016 07:58
--- NOTE | 2016-11-25 11:07 | HHI.FF ---
Face to Face Verification Diagnosis: (1) Abscess or cellulitis of leg (2) Contusion of right tibia Home Health Nursing Order: Wound care and dressing changes Instructions: Wet to dry dressing change on RIGHT lower extremity; needs to be changed BID---- once a day visit for patient and family teaching I have seen patient Mahendra Giles on 11/25/16. My clinical findings support the need for the requested home health care services because: Limited ability to care for self High risk of falls I certify that my clinical findings support that this patient is homebound because: Unsteady gait/balance Marie Sheth Nov 25, 2016 11:07 Tl Virgen MD Dec 04, 2016 17:33
[2016-11-25 11:40] VITALS: BP 115/78; PULSE 59; RESP 16; TEMP 98.3; O2SAT 96
[2016-11-25 16:00] VITALS: BP 112/72; PULSE 57; RESP 18; TEMP 96.9; O2SAT 95
[2016-11-25 20:00] VITALS: BP 111/67; PULSE 62; RESP 17; TEMP 96.1; O2SAT 98
--- NOTE | 2016-11-25 20:14 | HHI.PR ---
Subjective Subjective Notes still painful when he walks. Requiring IV pain medicine periodically. Objective Vitals/I&O Vital Signs Date Time Temp Pulse Resp B/P Pulse Ox O2 Delivery O2 Flow Rate FiO2 11/25/16 16:00 96.9 57 18 112/72 95 11/24/16 10:55 21 Labs Laboratory Tests Test 11/25/16 05:00 White Blood Count 7.7 Red Blood Count 4.74 Hemoglobin 15.7 Hematocrit 44.7 Mean Corpuscular Volume 94.3 Mean Corpuscular Hemoglobin 33.2 Mean Corpuscular Hemoglobin 35.2 Concent Red Cell Distribution Width 13.3 Platelet Count 225 Mean Platelet Volume 8.6 Neutrophils (%) (Auto) 57.7 Lymphocytes (%) (Auto) 25.6 Monocytes (%) (Auto) 10.9 Eosinophils (%) (Auto) 5.0 Basophils (%) (Auto) 0.8 Neutrophils # (Auto) 4.5 Lymphocytes # (Auto) 2.0 Monocytes # (Auto) 0.8 Eosinophils # (Auto) 0.4 Basophils # (Auto) 0.1 CBC Comment DIFF FINAL Differential Comment Sodium Level 140 Potassium Level 4.2 Chloride Level 104 Carbon Dioxide Level 29.6 Anion Gap 6 Blood Urea Nitrogen 15 Creatinine 1.28 Estimat Glomerular Filtration 57 Rate Random Glucose 83 Calcium Level 8.5 Total Bilirubin 0.4 Aspartate Amino Transf 12 (AST/SGOT) Alanine Aminotransferase 20 (ALT/SGPT) Alkaline Phosphatase 79 Total Protein 6.6 Albumin 3.1 Narrative Exam Wound dressing clean with minimal drainage. Plan continued b.i.d. dressing changes until he goes home. A/P Assessment and Plan Assessment: POD #5 I&D Right leg hematoma, infected Plan: Continue wet to dry dressing changes BID. Likely D/C home tomorrow Tl Virgen MD Nov 25, 2016 20:14
[2016-11-26] VITALS: BP 107/64; PULSE 60; RESP 17; TEMP 95.7; O2SAT 98
[2016-11-26 04:45] LABS: AUTOMATED NEUTROPHIL # 3.7 TH/MM3 (1.8-7.7); BASOPHIL # 0.1 TH/MM3 (0-0.2); BASOPHIL % 1.1 % (0.0-2.0); EOSINOPHIL # 0.4 TH/MM3 (0-0.4); HEMO FLAGS DIFF FINAL; LYMPH % 27.3 % (9.0-44.0); LYMPHOCYTE # 1.9 TH/MM3 (1.0-4.8); MEAN CELL VOLUME 94.5 FL (80.0-100.0); MEAN CORPUSCULAR HEMOGLOBIN 32.7 PG (27.0-34.0); MEAN CORPUSCULAR HGB CONC 34.6 % (32.0-36.0); MONO % 12.2 % (0.0-8.0); NEUT % 53.4 % (16.0-70.0); PLATELET COUNT 216 TH/MM3 (150-450); RED BLOOD COUNT 4.76 MIL/MM3 (4.50-5.90); RED CELL DISTRIBUTION WIDTH 13.4 % (11.6-17.2)
[2016-11-26 05:22] LABS: ALKALINE PHOSPHATASE 99 U/L (45-117); ALT (GPT) 30 U/L (12-78); ANION GAP 8 MEQ/L (5-15); AST (GOT) 20 U/L (15-37); BICARBONATE 28.5 MEQ/L (21.0-32.0); BLOOD UREA NITROGEN 20 MG/DL (7-18); CHLORIDE 106 MEQ/L (98-107); GLOMERULAR FILTRATION RATE 43 ML/MIN (>89); POTASSIUM 4.4 MEQ/L (3.5-5.1); SODIUM (NA) 142 MEQ/L (136-145); TOTAL BILIRUBIN ADULT 0.3 MG/DL (0.2-1.0)
[2016-11-26] MEDS: NITROGLYCERIN 2% OINT 1 GM PACKET TOPICAL SCH ×4 (05:39→16:54)
[2016-11-26] MEDS: MUPIROCIN 2% CREAM 15 GM TOPICAL SCH ×3 (05:39→21:49)
[2016-11-26 08:00] VITALS: BP 126/77; PULSE 58; RESP 17; TEMP 97.2; O2SAT 98
[2016-11-26] MEDS: AMOXICILLIN/CLAVULANATE K 875 MG TAB PO SCH ×2 (08:08→21:48)
[2016-11-26] MEDS: ASPIRIN EC 325 MG TABEC PO SCH (08:08)
[2016-11-26] MEDS: FAMOTIDINE 20 MG TAB PO SCH ×2 (08:09→21:49)
[2016-11-26] MEDS: ACETAMINOPHEN/HYDROcodone 325 MG/5 MG TAB PO PRN ×2 (08:09→14:39)
[2016-11-26] MEDS: LORazepam 1 MG TAB PO PRN ×2 (08:09→16:34)
[2016-11-26] MEDS: buPROPion HCL 100 MG SUSTAINED RELEASE TAB PO SCH ×2 (08:09→21:48)
[2016-11-26] MEDS: METOPROLOL TARTRATE 25 MG TAB PO SCH ×2 (08:11→21:48)
--- NOTE | 2016-11-26 08:16 | HHI.PR ---
Subjective History of Present Illness Patient feel better right leg wound better ID. input noted all question answered patient happy with care provided. s/p wound debridment and hematoma evacuation.....Right leg pain on dilaudid . wants to go home tomorrow refused discharge today. Review of Systems Constitutional Constitutional: Fatigue Integumentary Skin Remarks right leg wound with redness. Vitals/Results Intake & Output 11/25/16 11/25/16 11/26/16 15:00 23:00 07:00 Intake Total 1020 ml 240 ml 240 ml Output Total 1000 ml 250 ml 400 ml Balance 20 ml -10 ml -160 ml Intake Oral 1020 ml 240 ml 240 ml IV Total 0 ml Output Urine Total 1000 ml 250 ml 400 ml # Bowel Movements 0 Vital Signs Vital Signs Date Time Temp Pulse Resp B/P Pulse Ox O2 Delivery O2 Flow Rate FiO2 11/26/16 00:00 95.7 60 17 107/64 98 11/25/16 20:00 96.1 62 17 111/67 98 11/25/16 16:00 96.9 57 18 112/72 95 11/25/16 11:40 98.3 59 16 115/78 96 CBC/BMP: 11/26/16 0403 11/26/16 0430 Lab Results Laboratory Tests Test 11/26/16 11/26/16 04:03 04:30 White Blood Count 7.0 TH/MM3 Red Blood Count 4.76 MIL/MM3 Hemoglobin 15.6 GM/DL Hematocrit 45.0 % Mean Corpuscular Volume 94.5 FL Mean Corpuscular Hemoglobin 32.7 PG Mean Corpuscular Hemoglobin 34.6 % Concent Red Cell Distribution Width 13.4 % Platelet Count 216 TH/MM3 Mean Platelet Volume 9.0 FL Neutrophils (%) (Auto) 53.4 % Lymphocytes (%) (Auto) 27.3 % Monocytes (%) (Auto) 12.2 % Eosinophils (%) (Auto) 6.0 % Basophils (%) (Auto) 1.1 % Neutrophils # (Auto) 3.7 TH/MM3 Lymphocytes # (Auto) 1.9 TH/MM3 Monocytes # (Auto) 0.9 TH/MM3 Eosinophils # (Auto) 0.4 TH/MM3 Basophils # (Auto) 0.1 TH/MM3 CBC Comment DIFF FINAL Differential Comment Sodium Level 142 MEQ/L Potassium Level 4.4 MEQ/L Chloride Level 106 MEQ/L Carbon Dioxide Level 28.5 MEQ/L Anion Gap 8 MEQ/L Blood Urea Nitrogen 20 MG/DL Creatinine 1.61 MG/DL Estimat Glomerular Filtration 43 ML/MIN Rate Random Glucose 95 MG/DL Calcium Level 8.4 MG/DL Total Bilirubin 0.3 MG/DL Aspartate Amino Transf 20 U/L (AST/SGOT) Alanine Aminotransferase 30 U/L (ALT/SGPT) Alkaline Phosphatase 99 U/L Total Protein 6.6 GM/DL Albumin 3.1 GM/DL Physical Exam General General Appearance: No Acute Distress, Comfortable Eyes Eye Exam: Pupils Equal, Pupils Reactive, Sclera White, Extraocular Movement Intact Ears & Nose Ears & Nose Exam: Nasal Mucosa [place] Throat Throat Exam: Oral Mucosa [place] & Moist, Oral Pharynx Normal Neck Neck Exam: Neck Supple, Trachea Midline Pulmonary Resp Exam: Clear Bilaterally, Breath Sounds Equal Cardiology CV Exam: Regular, Normal Sinus Rhythm Gastrointestinal/Abdomen GI Exam: Soft, Non-Tender, Bowel Sounds Present Musculoskeletal MS Exam: Joints Intact, Normal Tone Integumentary Skin Remarks 5x7 cm irrigular wound with erythema. Extremeties Extremities Exam: No Edema Neurologic Neuro Exam: Alert, Awake, Oriented, Speech Clear, Moving All Extremities, No Focal Deficits VTE Prophylaxis VTE Prophylaxis Meds: Lovenox PUD Prophylasis PUD Prophylaxis: Protonix Assessment/Plan Assessment/Plan ASSESSMENT AND PLAN: 1. This is a 66-year male who came to the emergency room diagnosed with chest pain rule acute coronary syndrome, most likely atypical chest pain. The patient had a stress test done six months ago. The patient was given the option to do a cardiac catheterization, which he refused at that time. Cardiology input noted. no Further recommendation per cardiology. The patient is chest pain-free currently. The patient on aspirin 325 milligrams p.o. daily, nitroglycerin and Lopressor 25 milligrams q. 12-hour and morphine for pain. 2. History of anxiety. Continue home medications. 3. History of depression. Continue home medications. 4. Right leg wound with calf tenderness. Venous Doppler negative for DVT. The patient is on Antibiotic PO Augmentin per ID recommendation... wound care following. checked MRI right leg report discussed with patient no osteomylitis.. and ID. 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 S/P wound debridment and hematoma evacuation.. 5. DVT prophylaxis. SCD left leg.. 6. GI prophylaxis. Protonix 40 milligrams p.o. daily. 7. Cellulitis of the right lower extremity. The patient is on antibiotics. 8. Severe right leg pain on Lortab and Dilaudid. Check CBC with diff CMP in AM. wants to go home tomorrow refused discharge today. Discussed Condition with: Patient Camden Rizo MD Nov 26, 2016 08:16
[2016-11-26] MEDS: HYDROmorphone HCL PF 1 MG/ML VIAL IV PUSH PRN ×3 (09:25→22:33)
[2016-11-26 12:00] VITALS: BP 128/83; PULSE 63; RESP 18; TEMP 97.5; O2SAT 98
[2016-11-26 20:26] VITALS: BP 133/83; PULSE 82; RESP 20; TEMP 98.3; O2SAT 95
[2016-11-27 00:19] VITALS: BP 115/76; PULSE 64; RESP 20; TEMP 96; O2SAT 93
[2016-11-27 04:48] LABS: AUTOMATED NEUTROPHIL # 4.6 TH/MM3 (1.8-7.7); BASOPHIL # 0.1 TH/MM3 (0-0.2); BASOPHIL % 0.7 % (0.0-2.0); EOSINOPHIL # 0.4 TH/MM3 (0-0.4); EOSINOPHIL % 5.4 % (0.0-4.0); HEMATOCRIT 45.3 % (39.0-51.0); HEMO FLAGS DIFF FINAL; LYMPH % 26.9 % (9.0-44.0); LYMPHOCYTE # 2.2 TH/MM3 (1.0-4.8); MEAN CELL VOLUME 95.1 FL (80.0-100.0); MEAN CORPUSCULAR HEMOGLOBIN 32.3 PG (27.0-34.0); MEAN CORPUSCULAR HGB CONC 33.9 % (32.0-36.0); PLATELET COUNT 210 TH/MM3 (150-450); RED BLOOD COUNT 4.77 MIL/MM3 (4.50-5.90); RED CELL DISTRIBUTION WIDTH 13.7 % (11.6-17.2); WHITE BLOOD COUNT 8.2 TH/MM3 (4.0-11.0)
[2016-11-27 04:59] LABS: ALT (GPT) 25 U/L (12-78); ANION GAP 6 MEQ/L (5-15); AST (GOT) 13 U/L (15-37); BICARBONATE 29.1 MEQ/L (21.0-32.0); BLOOD UREA NITROGEN 18 MG/DL (7-18); CHLORIDE 104 MEQ/L (98-107); GLOMERULAR FILTRATION RATE 51 ML/MIN (>89); POTASSIUM 3.8 MEQ/L (3.5-5.1); SODIUM (NA) 139 MEQ/L (136-145)
[2016-11-27 05:01] LABS: ALKALINE PHOSPHATASE 91 U/L (45-117); TOTAL BILIRUBIN ADULT 0.3 MG/DL (0.2-1.0)
[2016-11-27] MEDS: MUPIROCIN 2% CREAM 15 GM TOPICAL SCH ×2 (06:00→11:59)
[2016-11-27] MEDS: NITROGLYCERIN 2% OINT 1 GM PACKET TOPICAL SCH ×3 (06:00→11:59)
[2016-11-27] MEDS: HYDROmorphone HCL PF 1 MG/ML VIAL IV PUSH PRN (06:12)
[2016-11-27 08:00] VITALS: BP 102/62; PULSE 54; RESP 18; TEMP 97.7; O2SAT 98
[2016-11-27] MEDS: METOPROLOL TARTRATE 25 MG TAB PO SCH (08:18)
[2016-11-27] MEDS: buPROPion HCL 100 MG SUSTAINED RELEASE TAB PO SCH (08:30)
[2016-11-27] MEDS: LORazepam 1 MG TAB PO PRN ×2 (08:31→15:31)
[2016-11-27] MEDS: FAMOTIDINE 20 MG TAB PO SCH (08:31)
[2016-11-27] MEDS: ASPIRIN EC 325 MG TABEC PO SCH (08:31)
[2016-11-27] MEDS: AMOXICILLIN/CLAVULANATE K 875 MG TAB PO SCH (08:31)
--- NOTE | 2016-11-27 10:09 | HHI.PR ---
Subjective History of Present Illness Patient feel better right leg wound better ID. input noted all question answered patient happy with care provided. s/p wound debridment and hematoma evacuation.....Right leg pain on dilaudid . ok to DC home today. Review of Systems Constitutional Constitutional: Fatigue Integumentary Skin Remarks right leg wound with redness. Vitals/Results Intake & Output 11/26/16 11/26/16 11/27/16 15:00 23:00 07:00 Intake Total 360 ml 480 ml 360 ml Output Total 500 ml Balance 360 ml -20 ml 360 ml Intake Oral 360 ml 480 ml 360 ml IV Total 0 ml Output Urine Total 500 ml # Voids 2 1 # Bowel Movements 1 Vital Signs Vital Signs Date Time Temp Pulse Resp B/P Pulse Ox O2 Delivery O2 Flow Rate FiO2 11/27/16 08:00 97.7 54 18 102/62 98 11/27/16 00:19 96.0 64 20 115/76 93 11/26/16 20:26 98.3 82 20 133/83 95 11/26/16 12:00 97.5 63 18 128/83 98 CBC/BMP: 11/27/16 0400 11/27/16 0400 Lab Results Laboratory Tests Test 11/27/16 04:00 White Blood Count 8.2 TH/MM3 Red Blood Count 4.77 MIL/MM3 Hemoglobin 15.4 GM/DL Hematocrit 45.3 % Mean Corpuscular Volume 95.1 FL Mean Corpuscular Hemoglobin 32.3 PG Mean Corpuscular Hemoglobin 33.9 % Concent Red Cell Distribution Width 13.7 % Platelet Count 210 TH/MM3 Mean Platelet Volume 8.9 FL Neutrophils (%) (Auto) 56.0 % Lymphocytes (%) (Auto) 26.9 % Monocytes (%) (Auto) 11.0 % Eosinophils (%) (Auto) 5.4 % Basophils (%) (Auto) 0.7 % Neutrophils # (Auto) 4.6 TH/MM3 Lymphocytes # (Auto) 2.2 TH/MM3 Monocytes # (Auto) 0.9 TH/MM3 Eosinophils # (Auto) 0.4 TH/MM3 Basophils # (Auto) 0.1 TH/MM3 CBC Comment DIFF FINAL Differential Comment Sodium Level 139 MEQ/L Potassium Level 3.8 MEQ/L Chloride Level 104 MEQ/L Carbon Dioxide Level 29.1 MEQ/L Anion Gap 6 MEQ/L Blood Urea Nitrogen 18 MG/DL Creatinine 1.41 MG/DL Estimat Glomerular Filtration 51 ML/MIN Rate Random Glucose 102 MG/DL Calcium Level 8.3 MG/DL Total Bilirubin 0.3 MG/DL Aspartate Amino Transf 13 U/L (AST/SGOT) Alanine Aminotransferase 25 U/L (ALT/SGPT) Alkaline Phosphatase 91 U/L Total Protein 6.3 GM/DL Albumin 3.0 GM/DL Physical Exam General General Appearance: No Acute Distress, Comfortable Eyes Eye Exam: Pupils Equal, Pupils Reactive, Sclera White, Extraocular Movement Intact Ears & Nose Ears & Nose Exam: Nasal Mucosa [place] Throat Throat Exam: Oral Mucosa [place] & Moist, Oral Pharynx Normal Neck Neck Exam: Neck Supple, Trachea Midline Pulmonary Resp Exam: Clear Bilaterally, Breath Sounds Equal Cardiology CV Exam: Regular, Normal Sinus Rhythm Gastrointestinal/Abdomen GI Exam: Soft, Non-Tender, Bowel Sounds Present Musculoskeletal MS Exam: Joints Intact, Normal Tone Integumentary Skin Remarks 5x7 cm irrigular wound with erythema. Extremeties Extremities Exam: No Edema Neurologic Neuro Exam: Alert, Awake, Oriented, Speech Clear, Moving All Extremities, No Focal Deficits VTE Prophylaxis VTE Prophylaxis Meds: Lovenox PUD Prophylasis PUD Prophylaxis: Protonix Assessment/Plan Assessment/Plan ASSESSMENT AND PLAN: 1. This is a 66-year male who came to the emergency room diagnosed with chest pain rule acute coronary syndrome, most likely atypical chest pain. The patient had a stress test done six months ago. The patient was given the option to do a cardiac catheterization, which he refused at that time. Cardiology input noted. no Further recommendation per cardiology. The patient is chest pain-free currently. The patient on aspirin 325 milligrams p.o. daily, nitroglycerin and Lopressor 25 milligrams q. 12-hour and morphine for pain. 2. History of anxiety. Continue home medications. 3. History of depression. Continue home medications. 4. Right leg wound with calf tenderness. Venous Doppler negative for DVT. The patient is on Antibiotic PO Augmentin per ID recommendation... wound care following. checked MRI right leg report discussed with patient no osteomylitis.. and ID. 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 S/P wound debridment and hematoma evacuation.. 5. DVT prophylaxis. SCD left leg.. 6. GI prophylaxis. Protonix 40 milligrams p.o. daily. 7. Cellulitis of the right lower extremity. The patient is on antibiotics. 8. Severe right leg pain on Lortab and Dilaudid. OK to DC HOME TODAY. F/U with PCP/ ID/ General surgery 1 week. Discussed Condition with: Patient Camden Rizo MD Nov 27, 2016 10:09
[2016-11-27] MEDS ORDERED: AMOX875T2 PO (10:21)
[2016-11-27] MEDS ORDERED: MUPI2%T TOPICAL (10:21)
[2016-11-27] MEDS ORDERED: Aspirin Ec PO (10:21)
[2016-11-27] MEDS ORDERED: METO25TA3 PO (10:21)
[2016-11-27] MEDS ORDERED: HYDR-3516 PO (10:21)
[2016-11-27 12:00] VITALS: BP 108/69; PULSE 56; RESP 18; TEMP 97.3; O2SAT 98
--- NOTE | 2016-11-27 12:37 | HHI.PR ---
Subjective Subjective Notes Resting in bed Wants to go home today Objective Vitals/I&O Vital Signs Date Time Temp Pulse Resp B/P Pulse Ox O2 Delivery O2 Flow Rate FiO2 11/27/16 12:00 97.3 56 18 108/69 98 11/24/16 10:55 21 Labs Laboratory Tests Test 11/27/16 04:00 White Blood Count 8.2 Red Blood Count 4.77 Hemoglobin 15.4 Hematocrit 45.3 Mean Corpuscular Volume 95.1 Mean Corpuscular Hemoglobin 32.3 Mean Corpuscular Hemoglobin 33.9 Concent Red Cell Distribution Width 13.7 Platelet Count 210 Mean Platelet Volume 8.9 Neutrophils (%) (Auto) 56.0 Lymphocytes (%) (Auto) 26.9 Monocytes (%) (Auto) 11.0 Eosinophils (%) (Auto) 5.4 Basophils (%) (Auto) 0.7 Neutrophils # (Auto) 4.6 Lymphocytes # (Auto) 2.2 Monocytes # (Auto) 0.9 Eosinophils # (Auto) 0.4 Basophils # (Auto) 0.1 CBC Comment DIFF FINAL Differential Comment Sodium Level 139 Potassium Level 3.8 Chloride Level 104 Carbon Dioxide Level 29.1 Anion Gap 6 Blood Urea Nitrogen 18 Creatinine 1.41 Estimat Glomerular Filtration 51 Rate Random Glucose 102 Calcium Level 8.3 Total Bilirubin 0.3 Aspartate Amino Transf 13 (AST/SGOT) Alanine Aminotransferase 25 (ALT/SGPT) Alkaline Phosphatase 91 Total Protein 6.3 Albumin 3.0 Cardiovascular: Regular Lungs: Clear Abdomen: Non-distended, Non-tender Narrative Exam RIGHT [place] s/p I&D hematoma---with packing--- minimal drainage A/P Assessment and Plan 66 year old male s/p I&D RIGHT [place] hematoma evacuation -Pain controlled -[facility] set up for dressing changes -Follow up with Dr. Virgen next week -GS clear for DC Attending Note Wound clean with no purulence or old clot The exam, history, and the medical decision-making described in the above note were completed with the assistance of the mid-level provider. I reviewed and agree with the findings presented. I attest that I had a [id number] encounter with the patient on the same day, and personally performed and documented my assessment and findings in the medical record. Marie Sheth Nov 27, 2016 12:36 Tl Virgen MD Dec 04, 2016 17:34
[2016-11-27 16:00] VITALS: BP 111/75; PULSE 58; RESP 18; TEMP 98.7; O2SAT 99
--- NOTE | 2016-12-03 20:07 | MD ---
cc: CAMDEN VARAGS MD ADMISSION DATE: 11/20/2016 DISCHARGE DATE: 11/27/2016 Okay to discharge the patient. CONDITION AT THE TIME OF DISCHARGE Satisfactory. ACTIVITY As tolerated. DIET Cardiac diet. ALLERGIES NO KNOWN DRUG ALLERGIES. DISCHARGE MEDICATIONS 1. Augmentin 875 mg twice a day for 10 days. 2. Lortab 5/325 q.6 hours p.r.n. pain. 3. Metoprolol 25 mg twice a day. 4. Bactroban ointment apply to affected area three times a day. 5. Aspirin 325 mg p.o. daily. 6. Bupropion 100 mg q.12 hours. 7. Lorazepam 1 mg p.o. as directed. 8. Omeprazole 20 mg p.o. daily. The patient advised to followup with PCP, General Surgery and Infectious Disease doctor in one week and Cardiology in one week. ADMITTING DIAGNOSIS Chest pain, rule out acute coronary syndrome. DISCHARGE DIAGNOSES 1. Chest pain ruled out, acute coronary syndrome ruled out. 2. Cellulitis wound and hematoma of the right lower extremity. The patient is status post evacuation of the hematoma and debridement and wound packing. The patient's cellulitis improved. Infectious Disease saw the patient and General Surgery saw the patient. 3. History of anxiety. 4. History of depression. 5. History of right leg pain secondary to hematoma and cellulitis of the right leg. HOSPITAL COURSE This is a 66-year-old male admitted with chest pain, looked like atypical chest pain. Cardiology saw the patient, no further workup needed. The patient had cellulitis and a hematoma of the right lower extremity at the [place] area and the patient had a fall recently. Hematoma was evacuated by General Surgery. Infectious Disease saw the patient. The patient was given empiric antibiotic. The patient discharged on Augmentin at home. The patient remained stable during the hospital stay. No acute event happened. The patient had mild elevation of the creatinine, other than that nothing significant. Further details in the medical record. Camden Vargas MD EA/EVERARDO /1:07 PM /7:56 PM
== END 2016-11-27 17:38 | disposition home health service (06) | DRG 581 ==
LOC: PHED 09:28 → PHEDA 13:14 → PH3A 17:30 → HSDI 11-20 13:40 → OBSVTOIN 11-20 15:46 → N07B 11-20 19:00 → N07A 11-20 20:06
PROVIDERS: ADMIT Family Medicine; ATTEND Family Medicine
PROC: 0H9KXZX Drainage of Right Lower Leg Skin, External Approach, Diagnostic (ICD-10-PCS; 2016-11-16)
PROC: 0JDN0ZZ Extraction of Right Lower Leg Subcutaneous Tissue and Fascia, Open Approach (ICD-10-PCS; principal; 2016-11-20 17:44)
DX: L02.415 Cutaneous abscess of right lower limb (principal); F32.9 Major depressive disorder, single episode, unspecified; F41.9 Anxiety disorder, unspecified; L03.115 Cellulitis of right lower limb; R07.89 Other chest pain; K21.9 Gastro-esophageal reflux disease without esophagitis; G47.30 Sleep apnea, unspecified; Z87.891 Personal history of nicotine dependence; B95.2 Enterococcus as the cause of diseases classified elsewhere; B96.89 Other specified bacterial agents as the cause of diseases classified elsewhere
CPT/HCPCS: 10060; 71010; 73590; 73720; 76937; 80053; 80061; 82550; 82552; 84484; 85025; 85610; 85730; 87070; 87077; 87186; 87205; 93005; 93306; 93971; 96365; 96375; G0378; J0295; J0690; J1100; J1170; J1650; J1885; J1956; J2270; J2405; J3010; J3370; J7030; J7050; J7120